=== PATIENT | male | born 1935 ===

== ENCOUNTER 2017-11-22 16:47 | Inpatient (IN) | payer MEDICARE, OTHER ==
[2017-11-22] MEDS ORDERED: Sodium Chloride 0.9% 500 ML IV STA (17:05)
--- NOTE | 2017-11-22 17:12 | ED PDOC ---
Arrival/HPI - General Chief Complaint: Syncope Time Seen by Provider: 11/22/17 16:48 Historian: Patient, Family (Ex-) - History of Present Illness Narrative History of Present Illness (Text): 11/22/17 17:05 82 year old male, whose past medical history includes metastatic prostate cancer , presents to the emergency department via EMS for evaluation status post syncopal episode. Patient is a poor historian and translated by his ex-, who states he could not answer the door for her, and she found him in the bathroom "fainting". Patient states he is progressively short of breath on exertion. Patient denies any other specific complaint. 11/23/17 07:22 Time/Duration: Prior to Arrival Symptom Course: Unchanged Past Medical History - Provider Review Nursing Documentation Reviewed: Yes - Infectious Disease Hx of Infectious Diseases: None - Tetanus Immunization Tetanus Immunization: Unknown - Cardiac Hx Cardiac Disorders: Yes Hx Hypertension: Yes - Pulmonary Hx Respiratory Disorders: No - Neurological Hx Neurological Disorder: No - HEENT Hx HEENT Disorder: No - Renal Hx Renal Disorder: Yes - Endocrine/Metabolic Hx Endocrine Disorders: Yes Hx Diabetes Mellitus Type 2: Yes - Hematological/Oncological Hx Blood Disorders: Yes Hx Anemia: Yes Hx Blood Transfusions: Yes Hx Cancer: Yes (Prostate) - Integumentary Hx Dermatological Disorder: No - Musculoskeletal/Rheumatological Hx Musculoskeletal Disorders: No Hx Falls: No - Gastrointestinal Hx Vomiting: Yes - Genitourinary/Gynecological Hx Genitourinary Disorders: Yes Hx Prostate Cancer: Yes Hx Prostate Problems: Yes Hx Urinary Tract Infection: Yes (2-9-15) Other/Comment: HAD BILATERAL NEPHROSTOMY WERE REMOVED - Psychiatric Hx Psychophysiologic Disorder: No Hx Substance Use: No - Surgical History Hx Cholecystectomy: Yes Other/Comment: HX NEPHROSTOMY - Anesthesia Hx Anesthesia: Yes Hx Anesthesia Reactions: No Hx Malignant Hyperthermia: No - Suicidal Assessment Feels Threatened In Home Enviroment: No Family/Social History - Physician Review Nursing Documentation Reviewed: Yes Family/Social History: No Known Family HX Smoking Status: Never Smoked Hx Alcohol Use: No Hx Substance Use: No Hx Substance Use Treatment: No Allergies/Home Meds Allergies/Adverse Reactions: Allergies No Known Allergies Allergy (Verified 11/22/17 16:52) Home Medications: Home Meds Medication Instructions Recorded Confirmed Metoprolol Succinate 25 mg PO DAILY 06/20/16 11/22/17 Mirabegron [Myrbetriq] 25 mg PO DAILY 11/07/17 11/22/17 Review of Systems - Physician Review All systems were reviewed & negative as marked: Yes - Review of Systems Constitutional: Normal Eyes: Normal ENT: Normal Respiratory: Normal Cardiovascular: Syncope Gastrointestinal: Vomiting Genitourinary Male: Normal Musculoskeletal: Normal Skin: Normal Neurological: Normal Endocrine: Normal Hemo/Lymphatic: Normal Psychiatric: Normal Physical Exam Vital Signs Reviewed: Yes Vital Signs Temp Pulse Resp BP Pulse Ox 11/22/17 22:00 97.8 F 95 H 20 114/79 100 11/22/17 21:55 98.3 F 98 H 20 120/76 100 11/22/17 20:46 136/74 11/22/17 17:59 91 H 18 115/67 99 11/22/17 16:54 98 H 18 98/58 L 98 11/22/17 16:47 97.4 F L Temperature: Afebrile Blood Pressure: Normal Pulse: Regular Respiratory Rate: Normal Appearance: Positive for: Well-Appearing, Non-Toxic, Comfortable Pain Distress: None Mental Status: Positive for: Alert and Oriented X 3 Finger Stick Blood Glucose: 171 - Systems Exam Head: Present: Atraumatic, Normocephalic Pupils: Present: PERRL Extroacular Muscles: Present: EOMI Conjunctiva: Present: Normal Mouth: Present: Moist Mucous Membranes Neck: Present: Normal Range of Motion Respiratory/Chest: Present: Clear to Auscultation, Good Air Exchange. No: Respiratory Distress, Accessory Muscle Use Cardiovascular: Present: Regular Rate and Rhythm, Normal S1, S2. No: Murmurs Abdomen: No: Tenderness, Distention, Peritoneal Signs Back: Present: Normal Inspection Upper Extremity: Present: Normal Inspection. No: Cyanosis, Edema Lower Extremity: Present: Normal Inspection. No: Edema Skin: Present: Warm, Dry, Normal Color. No: Rashes Psychiatric: Present: Normal Affect (chronically ill appearing and catechetic) Medical Decision Making ED Course and Treatment: 11/22/17 17:19 Impression: 82 year old male presents to the emergency department for evaluation status post syncopal episode/dyspnea - ro pe, intracranil, infectious metabolic etiology. pt with known mets Plan: -- Labs -- CT Head -- EKG -- Chest X-ray -- Urinalysis -- Reassess and disposition Prior Visits: Notes and results from previous visits were reviewed. Progress Notes: 11/22/17 17:54 Chest X-ray Reviewed by radiologist, shows: No acute findings 11/23/17 07:22 noted la and leukocytosis code sepsis called. ivf initated. v/q neg. h/h baseline, accepted by dr wilkerson. - Lab Interpretations Lab Results: 11/22/17 17:00 11/22/17 17:00 Lab Results 11/22/17 17:00: pO2 37, VBG pH 7.02 L*, VBG pCO2 32.0 L, VBG HCO3 8.3 L, VBG Total CO2 9.3 L, VBG O2 Sat (Calc) 59.1, VBG Base Excess -21.7 L, VBG Potassium 4.6, Sodium 142.0, Chloride 117.0 H, Glucose 168 H, Lactate 4.6 H*, FiO2 21.0, Venous Blood Potassium 4.6 11/22/17 17:00: Sodium 145, Chloride 119 H, Potassium 4.5, Carbon Dioxide 7 L D , Anion Gap 23 H, BUN 92 H, Creatinine 3.8 H, Est GFR ( Amer) 19, Est GFR (Non-Af Amer) 15, Random Glucose 154 H, Calcium 6.8 L*, Magnesium 1.6 L, Total Bilirubin 0.8, AST 56, ALT 67 H, Alkaline Phosphatase 86, Lactate Dehydrogenase 1152 H, Total Creatine Kinase 38, Troponin I 0.04, NT-Pro-B Natriuret Pep 1930 H, Total Protein 4.7 L, Albumin 2.6 L, Globulin 2.1, Albumin/ Globulin Ratio 1.2, Lipase 211 11/22/17 17:00: PT 13.7 H, INR 1.20, APTT 29.2, D-Dimer, Quantitative 4986 H 11/22/17 17:00: WBC 13.2 H D, RBC 2.71 L, Hgb 7.9 L, Hct 24.9 L, MCV 91.9, MCH 29.2, MCHC 31.7, RDW 21.6 H, Plt Count 163, MPV 9.9, Gran % 83.8 H, Lymph % ( Auto) 12.6 L, [place] % (Auto) 3.5, Eos % (Auto) 0.0 L, Baso % (Auto) 0.1, Gran # 11.04 H, Lymph # (Auto) 1.7, [place] # (Auto) 0.5, Eos # (Auto) 0.0, Baso # (Auto) 0.01 11/22/17 16:57: POC Glucose (mg/dL) 171 H - RAD Interpretation Radiology Orders: 11/22/17 17:04 HEAD W/O CONTRAST [CT] Stat CHEST PORTABLE [RAD] Stat 11/22/17 17:05 LUNG PERF & VENT SCAN [NM] Stat - Medication Orders Current Medication Orders: Calcium/Vitamin D (Oscal-D 250 Mg-125 Units Tab) 1 tab PO DAILY JOLYNN Furosemide (Lasix) 20 mg IVP Q12 JOLYNN Sodium Chloride (Sodium Chloride 0.9%) 1,000 mls @ 80 mls/hr IV .[id number] STA Stop: 11/23/17 11:04 Last Admin: 11/22/17 23:32 Dose: 80 mls/hr eMAR Start Stop Document 11/22/17 23:32 LOPEMAR (Rec: 11/22/17 23:33 [facility] [id number] [place] Intravenous Solution Start Date 11/22/17 Start Time 23:32 End Date 11/23/17 End time 11:30 Total Infusion Time 718 Ceftriaxone Sodium (Rocephin 1 Gram Ivpb) 1 gm in 100 mls @ 100 mls/hr IVPB DAILY JOLYNN PRN Reason: Protocol Metoprolol Succinate (Toprol Xl) 25 mg PO DAILY JOLYNN Morphine Sulfate (Morphine) 4 mg IVP Q6 PRN PRN Reason: Pain, moderate (4-7) Pantoprazole Sodium (Protonix Inj) 40 mg IVP DAILY JOLYNN Discontinued Medications Furosemide (Lasix) 20 mg IVP STAT STA Stop: 11/22/17 20:15 Last Admin: 11/22/17 20:46 Dose: 20 mg MAR Blood Pressure Document 11/22/17 20:46 (Rec: 11/22/17 20:46 [id number]) Blood Pressure Blood Pressure (100/60-150/90) 136/74 IVP Administration Document 11/22/17 20:46 (Rec: 11/22/17 20:46 [id number]) Charges for Administration # of IVP Administrations 1 Sodium Chloride (Sodium Chloride 0.9%) 500 mls @ 999 mls/hr IV .Q31M STA Stop: 11/22/17 17:35 Last Admin: 11/22/17 17:15 Dose: 999 mls/hr eMAR Start Stop Document 11/22/17 17:15 EWO (Rec: 11/22/17 17:15 EWO [id number]) Intravenous Solution Start Date 11/22/17 Start Time 17:15 End Date 11/22/17 End time 17:45 Total Infusion Time 30 Vancomycin HCl (Vancomycin 1gm) 1 gm in 250 mls @ 167 mls/hr IVPB STAT STA PRN Reason: Protocol Stop: 11/22/17 19:17 Last Admin: 11/22/17 18:37 Dose: 167 mls/hr eMAR Start Stop Document 11/22/17 18:37 EWO (Rec: 11/22/17 18:37 [facility] [id number]) Intravenous Solution Start Date 11/22/17 Start Time 18:37 End Date 11/22/17 End time 20:00 Total Infusion Time 83 Piperacillin Sod/Tazobactam Sod (Zosyn 3.375 In Ns 100ml) 100 mls @ 200 mls/hr IVPB STAT STA PRN Reason: Protocol Stop: 11/22/17 18:17 Last Admin: 11/22/17 18:04 Dose: 200 mls/hr eMAR Start Stop Document 11/22/17 18:04 EWO (Rec: 11/22/17 18:04 [facility] [id number]) Intravenous Solution Start Date 11/22/17 Start Time 18:04 End Date 11/22/17 End time 18:34 Total Infusion Time 30 Sodium Chloride (Sodium Chloride 0.9%) 1,000 mls @ 999 mls/hr IV .Q1H1M STA Stop: 11/22/17 18:50 Last Admin: 11/22/17 18:03 Dose: 999 mls/hr eMAR Start Stop Document 11/22/17 18:03 EWO (Rec: 11/22/17 18:04 [facility] [id number]) Intravenous Solution Start Date 11/22/17 Start Time 18:04 End Date 11/22/17 End time 19:04 Total Infusion Time 60 Morphine Sulfate (Morphine) 4 mg IVP STAT STA Stop: 11/22/17 18:41 Last Admin: 08/25/18 18:44 Dose: 4 mg MAR Pain Assessment Document 11/22/17 18:44 EWO (Rec: 11/22/17 18:44 [facility] [id number]) Pain Reassessment Is this a pain reassessment? No Sleep Is patient sleeping during reassessment? No Presence of Pain Presence of Pain Yes Pain Scale Used Pain Scale Used Numeric Location Pain Location Body Site Abdomen Description Description Constant Intensity of Pain at present 7 Pain Behavior Moaning Guarding IVP Administration Document 11/22/17 18:44 EWO (Rec: 11/22/17 18:44 [facility] [id number]) Charges for Administration # of IVP Administrations 1 Morphine Sulfate (Morphine) 4 mg IVP Q6 JOLYNN Last Admin: 11/23/17 00:36 Dose: Not Given Non-Admin Reason: Patient Refused MAR Pain Assessment Document 11/23/17 00:36 LOPEVAIVA (Rec: 11/23/17 00:36 [facility] [id number] [place] Pain Reassessment Is this a pain reassessment? Yes Sleep Is patient sleeping during reassessment? No Presence of Pain Presence of Pain No Pneumococcal Polyvalent Vaccine (Pneumovax 23 Vaccine) 0.5 ml IM .ONCE ONE Stop: 11/22/17 22:37 Disposition/Present on Arrival - Present on Arrival Any Indicators Present on Arrival: No History of DVT/PE: No History of Uncontrolled Diabetes: No Urinary Catheter: No History of Decub. Ulcer: No History Surgical Site Infection Following: None - Disposition Have Diagnosis and Disposition been Completed?: Yes Diagnosis: Syncope Disposition: HOSPITALIZED Disposition Time: 06:00 Condition: STABLE
[2017-11-22 17:45] LABS: BASO # 0.01 K/mm3 (0.0-2.0); BASO % 0.1 % (0.0-3.0); GRAN # 11.04 (1.4-6.5); GRAN % 83.8 % (50.0-68.0); HEMOGLOBIN 7.9 g/dL (14.0-18.0); LYMPH # 1.7 (1.2-3.4); LYMPH % 12.6 % (22.0-35.0); MEAN CELL VOLUME 91.9 fl (80.0-105.0); MEAN CORPUSCULAR HEMOGLOBIN 29.2 pg (25.0-35.0); MEAN CORPUSCULAR HGB CONC 31.7 g/dl (31.0-37.0); MEAN PLATELET VOLUME 9.9 fl (7.0-11.0); MONO # 0.5 (0.1-0.6); MONO % 3.5 % (1.0-6.0); RBC 2.71 10^6/uL (3.5-6.1); RED CELL DISTRIBUTION WIDTH 21.6 % (11.5-14.5); VENOUS BLOOD GAS BASE EXCESS -21.7 mmol/L (0.0-2.0); VENOUS BLOOD GAS PO2 37 mm/Hg (30-55); VENOUS BLOOD PH 7.02 (7.32-7.43); WHITE BLOOD COUNT 13.2 10^3/ul (4.5-11.0)
[2017-11-22] MEDS ORDERED: Piperacillin/Tazobact 3.375 gm 100 ML IVPB STA (17:48)
[2017-11-22] MEDS ORDERED: Vancomycin 1gm in NS 250ml 1 GM/250 ML BAG IVPB STA (17:48)
--- NOTE | 2017-11-22 17:48 | RAD ---
Date of service: 11/22/2017 HISTORY: syncope COMPARISON: 05/09/2014. FINDINGS: LUNGS: The lungs are clear. PLEURA: No significant pleural effusion identified, no pneumothorax apparent. CARDIOVASCULAR: There is persistent mild cardiomegaly. OSSEOUS STRUCTURES: No significant abnormalities. VISUALIZED UPPER ABDOMEN: Normal. OTHER FINDINGS: None. IMPRESSION: No acute findings.
[2017-11-22] MEDS ORDERED: Sodium Chloride 0.9% 1,000 ML IV STA ×2 (17:50→22:35)
[2017-11-22 17:54] LABS: TROPONIN I 0.04 ng/mL
[2017-11-22 18:05] LABS: INR 1.2; PARTIAL THROMBOPLASTIN TIME 29.2 Seconds (25.1-36.5); PROTHROMBIN TIME 13.7 SECONDS (9.4-12.5)
[2017-11-22] MEDS ORDERED: Morphine 4 mg/ml ISec IVP STA (18:40)
[2017-11-22 18:54] LABS: ALB/GLOB RATIO 1.2 (1.1-1.8); ALBUMIN 2.6 g/dL (3.0-4.8); CALCIUM 6.8 mg/dL (8.4-10.5)
[2017-11-22 21:42] LABS: ARTERIAL BLOOD GAS HCO3 7.7 mmol/L (21-28); ARTERIAL BLOOD GAS O2 SAT 99.9 % (95-98); ARTERIAL BLOOD GAS PCO2 18 mm/Hg (35-45); ARTERIAL BLOOD GAS PH 7.24 (7.35-7.45); ARTERIAL BLOOD GAS TCO2 8.3 mmol.L (22-28)
[2017-11-22] MEDS ORDERED: Pneumococcal 23-Valent Vaccine IM ONE (22:36)
[2017-11-22 22:37] LABS: URINE BILIRUBIN NEGATIVE (NEGATIVE); URINE BLOOD LARGE (NEGATIVE); URINE GLUCOSE (UA) NEGATIVE (NEGATIVE); URINE LEUKOCYTE ESTERASE MODERATE Leu/uL (NEGATIVE); URINE PROTEIN >=300 mg/dL (<30 mg/dL); URINE UROBILINOGEN 0.2 E.U./dL (<1 E.U./dL)
[2017-11-22 22:38] LABS: URINE APPEARANCE SLIGHT-CLOUDY (CLEAR); URINE COLOR ORANGE (YELLOW)
--- NOTE | 2017-11-22 22:39 | PCM.SEPTIC ---
<HeavenmitchDorinda - Last Filed: 11/22/17 22:36> Sepsis Progress Note - Reassessment Type Date of Evaluation: 11/22/17 Time of Evaluation: 22:37 Reassessment Type: Non-invasive reassessment - Non Invasive Reassessment Were the most recent vital sign reviewed: Yes Vital Sign (Latest): Temp Pulse Resp BP Pulse Ox 98.3 F 98 H 20 120/76 100 11/22/17 22:18 11/22/17 22:18 11/22/17 22:18 11/22/17 22:18 11/22/17 22:00 Cardiovascular: Yes: Regular Rate, Rhythm Respiratory: Yes: Normal Breath Sounds Capillary Refill: Normal (Less than 2 sec) Pulses: Normal Radial, Normal Dorsalis Pedis, Normal Posterior Tibialis Skin: Normal Color, Ecchymosis <Rolanda Abarca - Last Filed: 11/23/17 02:24> Sepsis Progress Note - Non Invasive Reassessment Vital Sign (Latest): Temp Pulse Resp BP Pulse Ox 98.1 F 94 H 19 127/77 100 11/22/17 23:40 11/22/17 23:51 11/22/17 23:40 11/22/17 23:40 11/22/17 23:40 Attending/Attestation - Attestation I have personally seen and examined this patient.: Yes I have fully participated in the care of the patient.: Yes I have reviewed all pertinent clinical information, including history, physical exam and plan: Yes Notes (Text): O/E of lungs: bibasilar crepts noted,R>L side. Also,there is a small superficial abrasion noted below the L knee.No ecchymosis seen.
[2017-11-22 23:05] LABS: URINE RBC TNTC /hpf (0-2); URINE WBC 20 - 25 /hpf (0-6)
[2017-11-22 23:06] LABS: URINE AMORPHOUS SEDIMENT SMALL; URINE BACTERIA OCC (NEG)
--- NOTE | 2017-11-22 23:09 | CP.PCM.HP ---
<Dorinda Handy - Last Filed: 11/23/17 02:03> History of Present Illness - History of Present Illness History of Present Illness: Dorinda Handy, Internal Medicine History and Physical for Dr. Abarca CC: Near Syncope 82 year old male with past medical history of metastatic prostate cancer stage IV, chronic kidney disease stage IV, anemia, hypertension, bilateral hydronephrosis, and depression presents with a near syncopal episode. Patient was a poor historian and most of the history was taken from the son and ex- . Patient's ex- reports finding patient in the bathroom almost fainting and short of breath. Patient also vomited dark fluid at the time soon after he drank grape juice. Patient also reported nausea and fullness, diffuse nonradiating, constant abdominal pain and distension. Patient reports that pain reduced after administration of morphine. Patient has had these abdominal symptoms before and was treated successfully with lasix in the past. Patient reports a 40 pound weight loss in a 3 month period. Patient has a decreased appetite and denies constipation. Patient reports daily bowel movements and last bowel movement was this afternoon. Patient is a poor historian but denied symptoms of headache, dizziness, fever, chest pain, heart palpitations, present shortness of breath, diarrhea, dysuria, hematuria, numbness/tingling. 12-point ROS was unreliable due to patient's mental status/drowsiness. PMH: as stated above PSH: bilateral ureteral stent, hemodialysis, prostatectomy Allergies: NKDA FMHx: Brother: CAD SHx: denies smoking, alcohol, or recreational drug use PMD: Dr. Toney. Patient also sees Dr. Almanza, Heme/onc, and Dr. Staton , Urology. Pharmacy: [facility] Insurance: [employer] Present on Admission - Present on Admission Any Indicators Present on Admission: No History of DVT/PE: No History of Uncontrolled Diabetes: No Review of Systems - Review of Systems Systems not reviewed;Unavailable: Acuity of Condition - Constitutional Constitutional: absent: Anorexia, Chills, Fever - EENT Eyes: absent: Blurred Vision Ears: absent: Decreased Hearing - Cardiovascular Cardiovascular: absent: Chest Pain, Chest Pain with Activity - Respiratory Respiratory: Dyspnea - Gastrointestinal Gastrointestinal: Abdominal Pain, Nausea, Vomiting. absent: Constipation, Diarrhea - Genitourinary Genitourinary: absent: Dysuria, Hematuria - Musculoskeletal Musculoskeletal: absent: Arthralgias - Neurological Neurological: Numbness, Tingling (on right 2nd finger) Past Patient History - Infectious Disease Hx of Infectious Diseases: None - Tetanus Immunizations Tetanus Immunization: Unknown - Past Medical History & Family History Past Medical History?: Yes - Past Social History Smoking Status: Never Smoked - CARDIAC Hx Cardiac Disorders: Yes Hx Hypertension: Yes Hx Peripheral Edema: Yes (ble +1 pitting) Other/Comment: et cold to touchfe - PULMONARY Hx Respiratory Disorders: No - NEUROLOGICAL Hx Neurological Disorder: No - HEENT Hx HEENT Problems: No - RENAL Hx Chronic Kidney Disease: Yes Hx Renal Failure: Yes Other/Comment: hydronephrosis, dysuria - ENDOCRINE/METABOLIC Hx Endocrine Disorders: No Hx Diabetes Mellitus Type 2: (family denies diabetes) - HEMATOLOGICAL/ONCOLOGICAL Hx Blood Disorders: Yes Hx Anemia: Yes (blood transfusion) Hx Cancer: Yes (Prostate) Hx Chemotherapy: Yes Hx Metastesis: Yes (peritoneum/pancreas) Other/Comment: pt dx with prostate about 15 yrs ago and was treated hormonal therapy, zytiga, chemo, completed - INTEGUMENTARY Hx Dermatological Problems: Yes Other/Comment: generalized dry skin, thick hard toenails, abd surgical scar - MUSCULOSKELETAL/RHEUMATOLOGICAL Hx Falls: Yes (fell w weeks ago bruised left shoulder) - GASTROINTESTINAL Hx Gastrointestinal Disorders: Yes (abd distended/firm) Hx Gall Bladder Disease: Yes (CHOLECYSTECTOMY) - GENITOURINARY/GYNECOLOGICAL Hx Genitourinary Disorders: Yes Hx Prostate Problems: Yes Hx Urinary Tract Infection: Yes (2-9-15) Other/Comment: pt has bilateral internal nephrostomy tubes that get changed 2x' s a year - PSYCHIATRIC Hx Substance Use: No - SURGICAL HISTORY Hx Surgeries: Yes Hx Cholecystectomy: Yes Other/Comment: pt has internal b/l nephrostomy tubes that are changed 2x's a year, pelvic bx - ANESTHESIA Hx Anesthesia: Yes Hx Anesthesia Reactions: No Hx Malignant Hyperthermia: No Meds Allergies/Adverse Reactions: Allergies Allergy/AdvReac Type Severity Reaction Status Date / Time No Known Allergies Allergy Verified 11/22/17 16:52 Physical Exam - Constitutional Additional comments: Drowsy, easily arousable - Head Exam Head Exam: ATRAUMATIC, NORMAL INSPECTION, NORMOCEPHALIC - Eye Exam Eye Exam: EOMI, PERRL - ENT Exam ENT Exam: Mucous Membranes Moist - Respiratory Exam Additional comments: mild bibasilar crepitations noted, right base of lung>left base of lung. - Cardiovascular Exam Cardiovascular Exam: REGULAR RHYTHM, RRR - GI/Abdominal Exam GI & Abdominal Exam: Distended, Firm, Hypoactive Bowel Sounds, Tenderness. absent: Guarding, Rebound - Extremities Exam Extremities exam: Positive for: full ROM. Negative for: pedal edema Additional comments: no cyanosis, left lower extremity abrasion - Back Exam Back exam: NORMAL INSPECTION - Neurological Exam Neurological exam: CN II-XII Intact, Oriented x3 Additional comments: drowsy but arousable - Skin Skin Exam: Dry, Normal Color, Warm Additional comments: mild abrasion on left lewer extremity abrasion Results - Vital Signs Recent Vital Signs: Last Vital Signs Temp 98.3 F 11/22/17 22:18 Pulse 98 H 11/22/17 22:18 Resp 20 11/22/17 22:18 BP 120/76 11/22/17 22:18 Pulse Ox 100 11/22/17 22:00 - Labs Result Diagrams: 11/22/17 17:00 11/22/17 17:00 Labs: Laboratory Results - last 24 hr 11/22/17 11/22/17 21:38 21:47 pCO2 18 L* pO2 139.0 H HCO3 7.7 L* ABG pH 7.24 L ABG Total CO2 8.3 L ABG O2 Saturation 99.9 H ABG Base Excess -17.4 L ABG Potassium 4.2 Sodium 143.0 Chloride 121.0 H Glucose 139 H Lactate 1.6 FiO2 28.0 Arterial Blood Potassium 4.2 Urine Color [place] Urine Appearance Slight-cloudy Urine pH 6.0 Ur Specific [place] 1.020 Urine Protein >=300 H Urine Glucose (UA) Negative Urine Ketones Trace H Urine Blood Large H Urine Nitrate Negative Urine Bilirubin Negative Urine Urobilinogen 0.2 Ur Leukocyte Esterase Moderate H Assessment & Plan - Assessment and Plan (Free Text) Assessment: 82 year old male with past medical history of metastatic prostate cancer stage IV, chronic kidney disease stage IV, anemia, hypertension, bilateral hydronephrosis, and depression presents with a near syncopal episode. Patient will be admitted for near syncope, shortness of breath, abdominal distension. Plan: Near Syncopal episode -Reported by ex- -Difficult to differentiate etiology due to poor historian -Head CT: No acute intracranial findings. -Blood pressure: 127/77 -Orthostatic vital signs ordered. -Vital signs Q4x24 hours -Patient was short of breath on admission. Patient's O2 saturation is 100% on 2L NC -Hgb: 7.9. Baseline is around 8 since 08/2017. Baseline was around 10 from from -07/2017. Patient has a chronic normocytic anemia -Continue to monitor. Metastatic prostate cancer stage IV -Patient with history of metastatic prostate cancer s/p prostatectomy and radiation -Abdominal CT ordered to evaluate for sites of metastasis. -Patient currently NPO due pending imaging studies. Diet will be progressed to clear liquid diet as tolerated after imaging studies. -LDH: 1152 -Patient currently with abdominal distension, likely 2/2 to metastatic prostate cancer. -One dose of lasix given in ED -Lasix 20 mg IVP Q12 started and will monitor for possible paracentesis to alleviate pressure. -I and O -Daily weight -Dr. Llamas, Heme/Onc, consulted for further recommendations. UTI -UA: protein>300, trace ketones, large blood, moderate leukocyte esterase, occasional bacteria, 20-25 WBC, Tntc RBC -Patient afebrile -WBC: 13.2. -Lactate on VBG: on admission, was 4.6. Last lactate was 1.6. -Patient fulfills SIRS criteria: WBC: 13.2, HR: 94, RR: 19, Temp: 98.1 -Patient is not in shock, blood pressure is 127/77. -Blood culture, urine culture, procalcitonin ordered. -Ceftriaxone 1 gm daily started for suspected UTI -Continue with NS 80 cc/hr -Continue to monitor. KDIGO stage 1 WALLY on stage 4 CKD -BUN/Cr: 92/3.8 -Due to dehydration vs. hydronephrosis from ureteral stenosis. -IV NS -Consider aguayo insertion. Bladder ultrasound from 11/14 showed no urinary retention. Anion Gap Metabolic Acidosis 2/2 to uremia vs. lactic acidosis vs. dehyration -Anion gap: 19 -Delta/delta: -CT Abdomen ordered. -Ammonia level ordered. Elevated D-Dimer likely 2/2 to metastatic prostate cancer -D-dimer: 4986 -V/Q scan: No findings to suggest pulmonary embolism Hypocalcemia -Calcium: 6.8 -Corrected calcium: 7.5 -Vitamin D level ordered -Will supplement calcium carbonate/vitamin D Hypomagnesemia -Mildly decreased at 1.6 -Continue to monitor. Elevated BNP possibly 2/2to WALLY on CKD -No history of congestive heart failure and no echocardiogram seen on [facility] [place] records. -Echocardiogram ordered. History of Hypertension -Blood pressure: 127/77 -Continue home metoprolol. DVT prophylaxis: SCD GI prophylaxis: protonix 40 mg daily CODE STATUS: Patient is DNR/DNI. Talked to patient's son and ex- extensively regarding patient's condition and patient's son agreed to make the patient DNR/DNI. Patient's son is the next of kin for the patient. Patient seen and assessed with Dr. Abarca. - Date & Time Date: 11/23/17 Time: 00:05 <Rolanda Abarca - Last Filed: 11/23/17 02:32> Results - Vital Signs Recent Vital Signs: Last Vital Signs Temp 98.1 F 11/22/17 23:40 Pulse 94 H 11/22/17 23:51 Resp 19 11/22/17 23:40 BP 127/77 11/22/17 23:40 Pulse Ox 100 11/22/17 23:40 - Labs Result Diagrams: 11/22/17 17:00 11/22/17 17:00 Labs: Laboratory Results - last 24 hr 11/22/17 11/22/17 21:38 21:47 pCO2 18 L* pO2 139.0 H HCO3 7.7 L* ABG pH 7.24 L ABG Total CO2 8.3 L ABG O2 Saturation 99.9 H ABG Base Excess -17.4 L ABG Potassium 4.2 Sodium 143.0 Chloride 121.0 H Glucose 139 H Lactate 1.6 FiO2 28.0 Arterial Blood Potassium 4.2 Urine Color [place] Urine Appearance Slight-cloudy Urine pH 6.0 Ur Specific [place] 1.020 Urine Protein >=300 H Urine Glucose (UA) Negative Urine Ketones Trace H Urine Blood Large H Urine Nitrate Negative Urine Bilirubin Negative Urine Urobilinogen 0.2 Ur Leukocyte Esterase Moderate H Urine RBC Tntc Urine WBC 20 - 25 Ur Epithelial Cells 3 - 4 Amorphous Sediment Small Urine Bacteria Occ Attending/Attestation - Attestation I have personally seen and examined this patient.: Yes I have fully participated in the care of the patient.: Yes I have reviewed all pertinent clinical information: Yes Notes (Text): 11/23/17 02:29 Pt examined with the Resident by the bedside. Physical findings,lab results and plan of treatment discussed in detail. Agree with documentation and plan of treatment.
[2017-11-23] MEDS ORDERED: Morphine 4 mg/ml ISec IVP SCH
[2017-11-23] MEDS ORDERED: Morphine 4 mg/ml ISec IVP PRN (01:16)
[2017-11-23] MEDS ORDERED: Dextrose 50% SYRINGE Inj (50 ml) ONE (05:04)
[2017-11-23 06:20] LABS: BASO # 0.01 K/mm3 (0.0-2.0); BASO % 0.1 % (0.0-3.0); EOS % 0.1 % (1.5-5.0); GRAN # 9.73 (1.4-6.5); GRAN % 87.2 % (50.0-68.0); LYMPH # 1.1 (1.2-3.4); LYMPH % 9.6 % (22.0-35.0); MEAN CELL VOLUME 88.7 fl (80.0-105.0); MEAN CORPUSCULAR HGB CONC 32.7 g/dl (31.0-37.0); MEAN PLATELET VOLUME 9.4 fl (7.0-11.0); MONO # 0.3 (0.1-0.6); RBC 2.38 10^6/uL (3.5-6.1); RED CELL DISTRIBUTION WIDTH 21.5 % (11.5-14.5); WHITE BLOOD COUNT 11.2 10^3/ul (4.5-11.0)
[2017-11-23 06:34] LABS: HEMOGLOBIN 6.9 g/dL (14.0-18.0)
[2017-11-23 06:50] LABS: ALB/GLOB RATIO 1.1 (1.1-1.8); ALBUMIN 2.4 g/dL (3.0-4.8); CALCIUM 6.4 mg/dL (8.4-10.5)
--- NOTE | 2017-11-23 08:16 | CT ---
Date of service: 11/22/2017 PROCEDURE: CT HEAD WITHOUT CONTRAST. HISTORY: Syncope COMPARISON: None available. TECHNIQUE: Axial computed tomography images were obtained through the head/brain without intravenous contrast. Radiation dose: Total exam DLP = 760.00 mGy-cm. This CT exam was performed using one or more of the following dose reduction techniques: Automated exposure control, adjustment of the mA and/or kV according to patient size, and/or use of iterative reconstruction technique. FINDINGS: HEMORRHAGE: No intracranial hemorrhage. BRAIN: There are mild chronic microangiopathic changes. There is no mass, mass effect or abnormal extra-axial fluid collection. There is no territorial infarction. The midline sagittal structures are normal. VENTRICLES: There is moderate age-related global parenchymal volume loss and proportionate enlargement of the ventricles and cortical sulci. CALVARIUM: There is no calvarial fracture or extracranial soft tissue swelling. PARANASAL SINUSES: Predominantly clear. MASTOID AIR CELLS: Predominantly clear. OTHER FINDINGS: None. IMPRESSION: No acute intracranial abnormality. Mild chronic microangiopathic changes and moderate age-related global parenchymal volume loss. A preliminary report was provided by [facility].
[2017-11-23] MEDS ORDERED: Magnesium 2 gm/50 ml NS 2 GM/50 ML BAG IVPB ONE ×2 (08:34→10:04)
[2017-11-23] MEDS ORDERED: Sodium Chloride 0.9% 1,000 ML IV STA (08:43)
[2017-11-23] MEDS: Metoprolol Succinate 25 mg XL Tab PO SCH (09:05)
[2017-11-23] MEDS ORDERED: Calcium-Vit D 250 mg-125 Units Tab UD PO SCH (10:00)
[2017-11-23] MEDS ORDERED: MIRABEGRON 25 MG PO SCH (10:00)
[2017-11-23] MEDS ORDERED: cefTRIAXone 1 gm 1 GM/100 ML BAG IVPB SCH (10:00)
--- NOTE | 2017-11-23 10:17 | CT ---
Date of service: 11/22/2017 PROCEDURE: CT Abdomen and Pelvis without intravenous contrast HISTORY: abdominal distension COMPARISON: 08/26/2017. TECHNIQUE: CT scan of the abdomen and pelvis was performed without administration of intravenous contrast. Oral contrast was not administered. Coronal and sagittal reformatted images were obtained. . Radiation dose: Total exam DLP = 758.06 mGy-cm. This CT exam was performed using one or more of the following dose reduction techniques: Automated exposure control, adjustment of the mA and/or kV according to patient size, and/or use of iterative reconstruction technique. FINDINGS: LOWER THORAX: The visualized lungs are clear. LIVER: Normal in size. No intrahepatic ductal dilatation. GALLBLADDER AND BILE DUCTS: No calcified gallstones. No biliary dilatation PANCREAS: Normal in size. No ductal dilatation. SPLEEN: Normal in size. ADRENALS: Normal in size. No discrete nodule. KIDNEYS AND URETERS: Bilateral atrophic kidneys. Ureteral stents remain in place. Bilateral hydroureteronephrosis. VASCULATURE: No aortic aneurysm. BOWEL: The stomach is distended and contains ingested debris. The small bowel loops are normal in caliber. The colon is normal in size. No bowel dilatation or wall thickening. No bowel obstruction. APPENDIX: Normal appendix. PERITONEUM: Small abdominal ascites. No free air. There are large mesenteric masses, the largest in the left abdomen. LYMPH NODES: No enlarged lymph nodes. BLADDER: Well distended and grossly normal in appearance. REPRODUCTIVE: The uterus is normal in size BONES: No acute fracture. There are multiple osseous metastasis. OTHER FINDINGS: None. IMPRESSION: Redemonstration of extensive peritoneal metastases with a large mass in the left mid abdomen. Distended stomach with ingested debris. Multiple sclerotic osseous metastasis. A preliminary report was provided by [facility].
[2017-11-23] MEDS: Cefepime 1gm in NS 100ml 1 GM/100 ML BAG IVPB SCH (11:52)
--- NOTE | 2017-11-23 12:55 | CARD ---
APPROVED REPORT Date of service: 11/22/2017 EKG Measurement Heart [id number] IN [id number] [id number] <Conclusion> Sinus rhythm with fusion complexes Otherwise normal ECG
--- NOTE | 2017-11-23 13:40 | CP.PCM.PN ---
<Tony Zarate - Last Filed: 11/23/17 16:03> Subjective - Date & Time of Evaluation Date of Evaluation: 11/23/17 Time of Evaluation: 13:38 - Subjective Subjective: Tony Zarate PGY1 Progress Note for Dr. Morocho Mr. Puentes was examined at bedside this morning. He was drowsy, but arousable and able to answer questions. He denied any dizziness, headache, shortness of breath, abdominal pain, nausea, vomiting, dysuria, difficulty urinating. His was present and reported that he was recently evaluated by his oncologist and told that he has a mass? obstruction? on R kidney. She was amenable to speaking with palliative care and considering hospice. Objective - Vital Signs/Intake and Output Vital Signs (last 24 hours): Temp Pulse Resp BP Pulse Ox 98.3 F 110 H 18 131/77 100 11/23/17 13:31 11/23/17 13:31 11/23/17 13:31 11/23/17 13:31 11/22/17 23:40 Intake and Output: 11/23/17 11/23/17 06:59 18:59 Intake Total 560 0 Output Total 500 Balance 60 0 - Medications Medications: Current Medications Calcium/Vitamin D (Oscal-D 250 Mg-125 Units Tab) 1 tab PO DAILY [facility] Last Admin: 11/23/17 09:05 Dose: Not Given Sodium Chloride (Sodium Chloride 0.9%) 1,000 mls @ 50 mls/hr IV .Q20H STA Stop: 11/23/17 18:34 Last Admin: 11/23/17 09:05 Dose: 50 mls/hr Sodium Bicarbonate 100 meq/ (Dextrose) 1,100 mls @ 100 mls/hr IV .Q11H [facility] Cefepime HCl (Maxipime 1gm) 1 gm in 100 mls @ 100 mls/hr IVPB Q24H [facility] PRN Reason: Protocol Stop: 12/02/17 11:01 Last Admin: 11/23/17 11:52 Dose: 100 mls/hr Metoprolol Succinate (Toprol Xl) 25 mg PO DAILY [facility] Last Admin: 11/23/17 09:05 Dose: Not Given Morphine Sulfate (Morphine) 4 mg IVP Q6 PRN PRN Reason: Pain, moderate (4-7) Pantoprazole Sodium (Protonix Inj) 40 mg IVP DAILY [facility] Last Admin: 11/23/17 09:24 Dose: 40 mg - Labs Labs: 11/23/17 05:30 11/23/17 05:30 PT 13.7 SECONDS (9.4-12.5) H 11/22/17 17:00 INR 1.20 11/22/17 17:00 APTT 29.2 Seconds (25.1-36.5) 11/22/17 17:00 - Head Exam Head Exam: ATRAUMATIC, NORMOCEPHALIC - Respiratory Exam Respiratory Exam: Clear to Ausculation Bilateral, NORMAL BREATHING PATTERN. absent: Rhonchi, Wheezes - Cardiovascular Exam Cardiovascular Exam: REGULAR RHYTHM, +S1, +S2. absent: Gallop, Rubs, Murmur - GI/Abdominal Exam GI & Abdominal Exam: Soft, Normal Bowel Sounds. absent: Tenderness Additional comments: no suprapubic tenderness - Extremities Exam Extremities Exam: Pedal Edema - Neurological Exam Neurological Exam: Awake - Skin Skin Exam: Normal Color Assessment and Plan - Assessment and Plan (Free Text) Assessment: 82 year old male with past medical history of metastatic prostate cancer stage IV, chronic kidney disease stage IV, anemia, hypertension, bilateral hydronephrosis, and depression presents with a near syncopal episode. Patient will be admitted for near syncope, shortness of breath, abdominal distension. Plan: Near Syncopal episode - pt unable to provide full history, episode reported by - denies dizziness, shortness of breath today - Head CT: No acute intracranial findings - BP: 144/78 - PT/OT eval ordered - Continue to monitor Metastatic prostate cancer: stage IV - h/o metastatic prostate cancer s/p prostatectomy and radiation - CT abdomen: metastasis to peritoneum and bone - ordered PSA, bladder scan as per urology - LDH: 1152 - I/Os: 560/500 - Daily weights: 177 lb 6.4 oz from 175 - Hem/onc consulted, Dr. Llamas, f/u recs - Urology consulted, Dr. Narcisa Mckeon, f/u recs - Palliative care consulted, f/u recs - consider hospice Chronic normocytic anemia - H/H 6.9/21.1 - Consented for transfusion - 1 unit PRBC given - f/u H/H - f/u Fe sat, ferritin, vit B12, folate Abdominal Distention - pt reported abdominal distention - given lasix in ED - d/c lasix 20mg q12 - monitor UTI - UA: mod leukocyte esterase, 20-25 WBC, large blood - Patient continues to be afebrile - WBC 11.2 from 13.2. - Lactate 1.6 - f/u BCx, UCx - f/u procal - continue cefepime - continue to monitor WALLY on CKD stage IV - BUN/Cr: 109/3.9 - pt denies urinary retention - BNP: 1930 - ECHO: f/u - CT abdomen: b/l atrophic kidneys, ureteral stents in place, b/l hydrouretonephrosis - bicarb drip ordered, as per nephro - weekly vit D supplements, as per nephro - decrease IV NS to 50cc/hr - f/u urine spot protein, cr, albumin/cr ratio - f/u 25-OH Vit D, iPTH, Phosph, HIV, Hep B/C - consider aguayo insertion pending bladder scan - Nephro consulted, Dr. Marquez, recs appreciated Elevated D-Dimer - likely secondary to metastatic prostate cancer - D-dimer: 4986 - V/Q scan: Non suggestive of pulmonary embolism Hypocalcemia - Calcium: 6.4, corrected 7.7 - Vitamin D 12.8 - Ca gluconate given - monitory Hypomagnesemia - Mg 1.4 - repleted with Mg 2 gm - monitor H/o HTN - BP: 144/78 - Continue home metoprolol - monitor GI prophylaxis: protonix 40 DVT prophylaxis: SCD Patient seen and assessed with Dr. Morocho. <Samara Morocho R - Last Filed: 11/24/17 08:56> Objective - Vital Signs/Intake and Output Vital Signs (last 24 hours): Temp Pulse Resp BP Pulse Ox 99 F 107 H 18 145/78 98 11/24/17 06:00 11/24/17 06:00 11/24/17 06:00 11/24/17 06:00 11/24/17 06:00 Intake and Output: 11/24/17 11/24/17 06:59 18:59 Intake Total 1200 0 Output Total 100 700 Balance 1100 -700 - Medications Medications: Current Medications Ergocalciferol (Drisdol 50,000 Intl Units Cap) 1 cap PO Q7D [facility] Last Admin: 11/23/17 14:52 Dose: 1 cap Sodium Bicarbonate 100 meq/ (Dextrose) 1,100 mls @ 100 mls/hr IV .Q11H [facility] Last Admin: 11/23/17 21:28 Dose: 100 mls/hr Cefepime HCl (Maxipime 1gm) 1 gm in 100 mls @ 100 mls/hr IVPB Q24H [facility] PRN Reason: Protocol Stop: 12/02/17 11:01 Last Admin: 11/23/17 11:52 Dose: 100 mls/hr Metoprolol Succinate (Toprol Xl) 25 mg PO DAILY [facility] Last Admin: 11/23/17 09:05 Dose: Not Given Morphine Sulfate (Morphine) 4 mg IVP Q6 PRN PRN Reason: Pain, moderate (4-7) Pantoprazole Sodium (Protonix Ec Tab) 40 mg PO 0600 [facility] Last Admin: 11/24/17 05:03 Dose: 40 mg Sodium Bicarbonate (Sodium Bicarbonate Tab) 1,300 mg PO TID [facility] Last Admin: 11/23/17 18:15 Dose: 1,300 mg - Labs Labs: 11/24/17 06:30 11/24/17 06:30 PT 13.7 SECONDS (9.4-12.5) H 11/22/17 17:00 INR 1.20 11/22/17 17:00 APTT 29.2 Seconds (25.1-36.5) 11/22/17 17:00 Attending/Attestation - Attestation I have personally seen and examined this patient.: Yes I have fully participated in the care of the patient.: Yes I have reviewed all pertinent clinical information, including history, physical exam and plan: Yes Notes (Text): Patient seen and examined by me at 9:20AM with resident 11/23/17. Case including HPI, physical exam, and assessment and plan discussed with resident. Agree with above with following additions/corrections. Patient is an 82-year-old male with past medical history significant for metastatic prostate cancer stage IV, chronic kidney disease stage IV, anemia, hypertension, bilateral hydronephrosis, and depression that presented to the emergency room with near syncope. Patient states he is feeling better today. Shortness of breath has improved. Patient does not feel dizzy or lightheaded. Denies any headaches. Abdominal distention improved. No difficulty urinating. No dysuria. No nausea, vomiting, or abdominal pain. No fevers or chills. No chest pain or palpitations. Physical exam: Gen: Awake and alert lying in bed in no acute distress. HEENT: Normocephalic, atraumatic. Extraocular muscles intact, pupils equal reactive. No scleral icterus. Oropharynx is pink and moist. Neck is supple. Cardiovascular: Regular rhythm. Normal S1 and S2. No murmurs, rubs, or gallops appreciated Pulmonary: Normal respiratory effort. Decreased breath sounds. No rhonchi, rales , or wheezing appreciated Gastrointestinal: Soft, nontender, distended. Positive bowel sounds all 4 quadrants, no guarding. Musculoskeletal: Moves all extremites. No calf tenderness. Central nervous system: AAO 3 Dermatologic: Skin warm and dry Assessment and plan: Patient is an 82-year-old male with past medical history significant for metastatic prostate cancer stage IV, chronic kidney disease stage IV, anemia, hypertension, bilateral hydronephrosis, and depression that presented to the emergency room with near syncope. 1. Sepsis secondary to possible UTI. Continue cefepime. ID consulted, follow-up recommendations. Continue IV fluids. Pro-calcitonin elevated at 1.28. Lactate normalized. Case was discussed in detail with patient regarding current diagnosis and treatment plan. CT abdomen and pelvis per radiologist shows redemonstration of extensive peritoneal metastases with a large mass in the left mid abdomen, distended stomach with ingested debris, multiple sclerotic osseous metastases, bilateral atrophic kidneys, ureteral stents remain in place, bilateral hydroureteronephrosis. Positive leukocytosis. Patient is afebrile. 2. Near syncopal episode. May be secondary to sepsis and anemia. Head CT per radiologist shows no acute intracranial abnormality, mild chronic microangiopathic changes and moderate age-related global parenchymal volume loss.' 3. Metastatic Prostate Cancer. Metastases to peritoneum and bone. Oncology consulted, follow-up recommendations. Palliative care consult, follow-up recommendations. Family is considering hospice care 4. Anemia. Likely secondary to malignancy. Patient being transfused 1 unit packed red blood cells. Hematology/oncology consulted, follow-up recommendations. Stool for occult blood pending. Monitor H&H 5. Abdominal distention. Improved per patient. Likely secondary to large mass in the mid left abdomen seen on CT. Continue to monitor 6. WALLY on CKD. Metabolic acidosis. Likely due to obstructive uropathy. CT abdomen and pelvis shows bilateral hydroureteronephrosis. Started on Bicarb drip. Nephrology consulted, recommendations appreciated. Urology consulted, follow up recommendations. Continue IV fluids. 7. Elevated D-dimer. Likely secondary to malignancy. V/Q scan official results pending. 8. Hypocalcemia/Vitamin D deficiency. Given calcium gluconate and started on Vitamin D. 9. Hypomagnesemia. Will give magnesium sulfate. Follow up repeat labs in the a.m. 10. Hypertension. Continue home metoprolol 11. GI/DVT prophylaxis. Protonix and heparin 12. Advanced directive. Patient is DNR/DNI. Palliative care consulted for possible hospice care. Case discussed in detail with the patient and patient's family at bedside regarding current diagnosis and treatment plan.
[2017-11-23] MEDS: Sodium Bicarbonate 8.4% 100 MEQ in Dextrose 5% In Water 1,000 ML IV SCH ×2 (13:53→21:28)
[2017-11-23] MEDS ORDERED: Ergocalciferol 50,000 Intl Units Cap PO SCH (14:00)
--- NOTE | 2017-11-23 14:06 | CP.PCM.CON ---
History of Present Illness - History of Present Illness History of Present Illness: Nephrology Consultation Note: Assessment: critical Acute Kidney Injury (N17.9) likely due to obstructive uropathy, sepsis, ATN Hypertensive Chronic Kidney Disease (I12.9) Chronic Kidney Disease (N18.4) Stage 4 with ? mg proteinuria (R80.9) likely due to obs uropathy, AKIs in past Anemia, sepsis with lactic acidosis HAGMA with respi compensation vit D def metastatic prostate CA hypocalcemia, hypomagnesemia, hypernatremia, hyperphosphatemia Plan No acute need for renal replacement therapy at this time. but may need soon, will need close follow up. palliative care consult to ascertain goals of care Maintain hemodynamics stable. Avoid hypotension. Patient not on ACEI/ARB due to recent WALLY Monitor Input/Output, daily weights and renal function with basic metabolic panel supplement Ca and Mag bicarb drip as ordered started PO bicarb and weekly Vit D supplements PRBC transfusion, heme eval. will defer decision for JOVANY to heme/onc aguayo catheterization Check urine spot protein/creatinine, albumin/creatinine ratio Anemia work up with TSAT/Ferritin/Vitamin B12/folate Check for 25-OH vitamin D, iPTH, phosphorus level. HIV/Hep B and C serologies Dose meds/antibiotics for reduced GFR. Avoid fleets enema/magnesium based laxatives. Avoid nephrotoxins/NSAIDs/ iodinated contrast (unless needed emergently) Glycemic control Further work up/management as per primary team Thanks for allowing me to participate in care of your patient. Will follow patient with you. Please call if any Qs. had d/w team Dr Reid Marquez Office: [phone] Chief Complaint; weakness Reason for consult: Acute Kidney Injury HPI: Pt is a 82 M with hx of HTN, metastatic prostate CA, CKD stage 4 wtih baseline cr 1.5-2.0, had required HD in past presented with complaints of fatigue, weakness and near syncope episodes, found to have WALLY and anemia hence renal consulted Denies OTC/herbal meds or NSAIDs No recent iodinated contrast exposure. Noted obvious episodes of low BP 98/58. ROS: Cardiovascular: No chest pain. Pulmonary: c/o mild shortness of breath Gastrointestinal: denies abdominal pain No nausea. No vomiting. Genitourinary: No pain while urinating. Denies blood in urine. All other negative except as mentioned in HPI. overall limited due to his current illness Physical Examination: General Appearance: Comfortable, in no acute respiratory distress, co-operative . ill appearing. Vitals reviewed and noted as below Head; Atraumatic, normocephalic ENT: no ulcers no thrush. Tongue is midline. Oropharynx: no rash or ulcers. EYES: Pupils are equal, round and reactive to light accommodation. Eye muscles and extraocular movement intact. Sclera is anicteric. Neck; supple no lymphadenopathy, no thyromegaly or bruit Lungs: Normal respiratory rate/effort. Breath sounds bilateral equal and clear Heart: Normal rate. s1s2 normal. No rub or gallop. Extremities: no edema. No varicose veins Neurological: Patient is alert, awake and oriented to person, place and time. No focal deficit. Strength bilateral appropriate and equal Skin: Warm and dry. Normal turgor. No rash. Palpitation: Normal elasticity for age Abdomen: Abdomen is soft. Bowel sounds +. There is no abdominal tenderness, no guarding/rigidity no organomegaly Psych: normal insight and normal affect/mood MSK: no joint tenderness or swelling. Digits and nails normal, no deformity : kidney or bladder not palpable Labs/imaging reviewed. Past medical history, past surgical history, family history, social history, allergy reviewed and noted as below Family hx: no hx of CKD. Rest non-contributory work up: b/l hydroureteronephrosis lactic acid 4.6 UA >3+ protein with large blood Past Patient History - Infectious Disease Hx of Infectious Diseases: None - Tetanus Immunizations Tetanus Immunization: Unknown - Past Medical History & Family History Past Medical History?: Yes - Past Social History Smoking Status: Never Smoked - CARDIAC Hx Cardiac Disorders: Yes Hx Hypertension: Yes - PULMONARY Hx Respiratory Disorders: No - NEUROLOGICAL Hx Neurological Disorder: No - HEENT Hx HEENT Problems: No - RENAL Hx Chronic Kidney Disease: Yes - ENDOCRINE/METABOLIC Hx Endocrine Disorders: Yes Hx Diabetes Mellitus Type 2: Yes - HEMATOLOGICAL/ONCOLOGICAL Hx Blood Disorders: Yes Hx Anemia: Yes Hx Blood Transfusions: Yes Hx Cancer: Yes (Prostate) - INTEGUMENTARY Hx Dermatological Problems: No - MUSCULOSKELETAL/RHEUMATOLOGICAL Hx Musculoskeletal Disorders: No Hx Falls: No - GASTROINTESTINAL Hx Vomiting: Yes - GENITOURINARY/GYNECOLOGICAL Hx Genitourinary Disorders: Yes Hx Prostate Cancer: Yes Hx Prostate Problems: Yes Hx Urinary Tract Infection: Yes (2-9-15) Other/Comment: HAD BILATERAL NEPHROSTOMY WERE REMOVED - PSYCHIATRIC Hx Psychophysiologic Disorder: No Hx Substance Use: No - SURGICAL HISTORY Hx Cholecystectomy: Yes Other/Comment: HX NEPHROSTOMY - ANESTHESIA Hx Anesthesia: Yes Hx Anesthesia Reactions: No Hx Malignant Hyperthermia: No Meds Allergies/Adverse Reactions: Allergies Allergy/AdvReac Type Severity Reaction Status Date / Time No Known Allergies Allergy Verified 11/22/17 16:52 - Medications Medications: Current Medications Calcium/Vitamin D (Oscal-D 250 Mg-125 Units Tab) 1 tab PO DAILY [facility] Last Admin: 11/23/17 09:05 Dose: Not Given Ergocalciferol (Drisdol 50,000 Intl Units Cap) 1 cap PO Q7D [facility] Sodium Chloride (Sodium Chloride 0.9%) 1,000 mls @ 50 mls/hr IV .Q20H STA Stop: 11/23/17 18:34 Last Admin: 11/23/17 09:05 Dose: 50 mls/hr Sodium Bicarbonate 100 meq/ (Dextrose) 1,100 mls @ 100 mls/hr IV .Q11H [facility] Last Admin: 11/23/17 13:53 Dose: 100 mls/hr Cefepime HCl (Maxipime 1gm) 1 gm in 100 mls @ 100 mls/hr IVPB Q24H [facility] PRN Reason: Protocol Stop: 12/02/17 11:01 Last Admin: 11/23/17 11:52 Dose: 100 mls/hr Metoprolol Succinate (Toprol Xl) 25 mg PO DAILY [facility] Last Admin: 11/23/17 09:05 Dose: Not Given Morphine Sulfate (Morphine) 4 mg IVP Q6 PRN PRN Reason: Pain, moderate (4-7) Pantoprazole Sodium (Protonix Inj) 40 mg IVP DAILY [facility] Last Admin: 11/23/17 09:24 Dose: 40 mg Sodium Bicarbonate (Sodium Bicarbonate Tab) 1,300 mg PO TID [facility] Results - Vital Signs Recent Vital Signs: Last Vital Signs Temp 98.2 F 11/23/17 13:47 Pulse 107 H 11/23/17 13:47 Resp 18 11/23/17 13:47 BP 144/78 11/23/17 13:47 Pulse Ox 100 11/22/17 23:40 - Labs Result Diagrams: 11/23/17 05:30 11/23/17 05:30 Labs: Laboratory Results - last 24 hr 11/22/17 11/22/17 11/23/17 21:38 21:47 05:30 WBC 11.2 H RBC 2.38 L Hgb 6.9 L* Hct 21.1 L MCV 88.7 D MCH 29.0 MCHC 32.7 RDW 21.5 H Plt Count 138 MPV 9.4 Gran % 87.2 H Lymph % (Auto) 9.6 L Esmeralda % (Auto) 3.0 Eos % (Auto) 0.1 L Baso % (Auto) 0.1 Gran # 9.73 H Lymph # (Auto) 1.1 L Esmeralda # (Auto) 0.3 Eos # (Auto) 0.0 Baso # (Auto) 0.01 pCO2 18 L* pO2 139.0 H HCO3 7.7 L* ABG pH 7.24 L ABG Total CO2 8.3 L ABG O2 Saturation 99.9 H ABG Base Excess -17.4 L ABG Potassium 4.2 Sodium 143.0 Chloride 121.0 H Glucose 139 H Lactate 1.6 FiO2 28.0 Potassium Carbon Dioxide Anion Gap BUN Creatinine Est GFR ( Amer) Est GFR (Non-Af Amer) Random Glucose Calcium Phosphorus Magnesium Total Bilirubin AST ALT Alkaline Phosphatase Ammonia Total Protein Albumin Globulin Albumin/Globulin Ratio 25-OH Vitamin D Total Arterial Blood Potassium 4.2 Urine Color Dale Urine Appearance Slight-cloudy Urine pH 6.0 Ur Specific Murray 1.020 Urine Protein >=300 H Urine Glucose (UA) Negative Urine Ketones Trace H Urine Blood Large H Urine Nitrate Negative Urine Bilirubin Negative Urine Urobilinogen 0.2 Ur Leukocyte Esterase Moderate H Urine RBC Tntc Urine WBC 20 - 25 Ur Epithelial Cells 3 - 4 Amorphous Sediment Small Urine Bacteria Occ Blood Type Antibody Screen Crossmatch [facility] History Checked 11/23/17 11/23/17 11/23/17 05:30 05:30 06:00 WBC RBC Hgb Hct MCV MCH MCHC RDW Plt Count MPV Gran % Lymph % (Auto) Esmeralda % (Auto) Eos % (Auto) Baso % (Auto) Gran # Lymph # (Auto) Esmeralda # (Auto) Eos # (Auto) Baso # (Auto) pCO2 pO2 HCO3 ABG pH ABG Total CO2 ABG O2 Saturation ABG Base Excess ABG Potassium Sodium 147 Chloride 120 H Glucose Lactate FiO2 Potassium 4.7 Carbon Dioxide 12 L Anion Gap 20 BUN 109 H Creatinine 3.9 H Est GFR ( Amer) 18 Est GFR (Non-Af Amer) 15 Random Glucose 114 H Calcium 6.4 L* Phosphorus 5.5 H Magnesium 1.4 L Total Bilirubin 0.6 AST 40 ALT 71 H Alkaline Phosphatase 74 Ammonia 32 Total Protein 4.5 L Albumin 2.4 L Globulin 2.1 Albumin/Globulin Ratio 1.1 25-OH Vitamin D Total < 12.8 L Arterial Blood Potassium Urine Color Urine Appearance Urine pH Ur Specific Murray Urine Protein Urine Glucose (UA) Urine Ketones Urine Blood Urine Nitrate Urine Bilirubin Urine Urobilinogen Ur Leukocyte Esterase Urine RBC Urine WBC Ur Epithelial Cells Amorphous Sediment Urine Bacteria Blood Type Antibody Screen Crossmatch BBK History Checked 11/23/17 08:00 WBC RBC Hgb Hct MCV MCH MCHC RDW Plt Count MPV Gran % Lymph % (Auto) Esmeralda % (Auto) Eos % (Auto) Baso % (Auto) Gran # Lymph # (Auto) Esmeralda # (Auto) Eos # (Auto) Baso # (Auto) pCO2 pO2 HCO3 ABG pH ABG Total CO2 ABG O2 Saturation ABG Base Excess ABG Potassium Sodium Chloride Glucose Lactate FiO2 Potassium Carbon Dioxide Anion Gap BUN Creatinine Est GFR ( Amer) Est GFR (Non-Af Amer) Random Glucose Calcium Phosphorus Magnesium Total Bilirubin AST ALT Alkaline Phosphatase Ammonia Total Protein Albumin Globulin Albumin/Globulin Ratio 25-OH Vitamin D Total Arterial Blood Potassium Urine Color Urine Appearance Urine pH Ur Specific Murray Urine Protein Urine Glucose (UA) Urine Ketones Urine Blood Urine Nitrate Urine Bilirubin Urine Urobilinogen Ur Leukocyte Esterase Urine RBC Urine WBC Ur Epithelial Cells Amorphous Sediment Urine Bacteria Blood Type O POSITIVE Antibody Screen Negative Crossmatch See Detail BBK History Checked Patient has bt
[2017-11-23 14:31] LABS: BASO # 0.02 K/mm3 (0.0-2.0); BASO % 0.2 % (0.0-3.0); GRAN # 10.9 (1.4-6.5); GRAN % 88.5 % (50.0-68.0); HEMOGLOBIN 7.1 g/dL (14.0-18.0); LYMPH % 8.3 % (22.0-35.0); MEAN CELL VOLUME 89.2 fl (80.0-105.0); MEAN CORPUSCULAR HEMOGLOBIN 29.6 pg (25.0-35.0); MEAN CORPUSCULAR HGB CONC 33.2 g/dl (31.0-37.0); MEAN PLATELET VOLUME 9.3 fl (7.0-11.0); MONO # 0.4 (0.1-0.6); RBC 2.4 10^6/uL (3.5-6.1); RED CELL DISTRIBUTION WIDTH 21.1 % (11.5-14.5); WHITE BLOOD COUNT 12.3 10^3/ul (4.5-11.0)
[2017-11-23 14:41] LABS: IRON 49 ug/dL (45-180)
[2017-11-23 14:50] LABS: % IRON SATURATION 25 % (20-55); TOTAL IRON BINDING CAPACITY 198 ug/dL (261-462)
[2017-11-23 17:32] LABS: FOLATE 6.4 ng/mL
--- NOTE | 2017-11-23 22:04 | CON ---
Copied To: Good Evans MD Attending MD: Good Evans MD DATE: 11/23/2017 LOCATION: The patient is in bed. He was seen earlier today in room 277, bed 2. CHIEF COMPLAINT: Weakness times several days. HISTORY OF PRESENT ILLNESS: An 82-year-old male with past medical history of prostate cancer stage IV with metastases with a pelvic mass biopsied in the past metastases with radiation, history of renal disease, hypertension, history of bilateral hydronephrosis requiring bilateral nephrostomy tube in the past, and history of depression and anemia. The patient admitted with syncopal episode and weakness. The patient's son and ex- brought the patient. The patient had been having shortness of breath. No fevers have been reported. There is some abdominal discomfort and the patient has had more weight loss. No headaches. No dizziness. There is no fevers, no chest pain, and there is shortness of breath. He has occasional diarrhea and dysuria. REVIEW OF SYSTEMS: Reveals a 12-point review of systems performed. PAST MEDICAL HISTORY: Significant for a prostate cancer with metastases with a pelvic mass and radiation, history of hypertension, history of renal disease, depression, and anemia. PAST SURGICAL HISTORY: Significant for bilateral nephrostomy, laparoscopic cholecystectomy, prostatectomy in the past. ALLERGIES: THE PATIENT ALSO HAS NO KNOWN ALLERGIES. MEDICATIONS AT HOME: Include metoprolol. PHYSICAL EXAMINATION: GENERAL: The patient is in bed, chronically ill, weak, debilitated. VITAL SIGNS: Temperature of 98, heart rate was 105, respiratory rate was 20, blood pressure is 98/50. The patient's BMI is 30. HEENT: Unremarkable. NECK: Supple. LUNGS: Decreased breath sounds. HEART: Normal S1, S2. ABDOMEN: Soft, nontender. No organomegaly. No rebound or guarding. LABORATORY EXAMINATION: Reveals a white count of 13,200, hemoglobin of 7, platelets of 163, patient's is 83% polys. Coagulation is noted. Blood gases are reviewed. Chemistries reveal a BUN of 92, creatinine of 3.8. The patient's bicarb is 7 with an anion gap of 23 with low calcium. The BNP at 1930. LFTs are mildly elevated. Urinalysis is positive for 20 to 25 wbc's, rbc's, bacteria, greater than 300 protein, moderate leukocyte esterase. The patient had a CAT scan of the abdomen and pelvis, which revealed distended urinary bladder and extensive peritoneal metastases, large mass, distended stomach, multiple sclerotic osseous metastases. The patient also had a chest x-ray which was reported to be negative. ASSESSMENT: This is an 82-year-old male with prostate cancer with metastases to the pelvis, mass, bone metastases, hypertension, renal disease, bilateral hydronephrosis in the past, depression, has had bilateral nephrostomy tubes in the past, now presenting with tachycardia, leukocytosis, and positive urinalysis with renal disease. 1. Sepsis with urine as the source and then we will start the patient on cefepime 1 g every 24 hours, adjusted for renal failure. We will discontinue the ceftriaxone and check on the blood cultures and the urine cultures. We will follow closely with you. The patient also did receive a dose of vancomycin and we will make further recommendations upon availability of initial results. Overall prognosis quite poor, should consider hospice setting for this patient. Good Evans MD
[2017-11-24] MEDS: Pantoprazole 40 mg EC Tab PO SCH (05:03)
[2017-11-24 07:27] LABS: BASO # 0.01 K/mm3 (0.0-2.0); BASO % 0.1 % (0.0-3.0); EOS % 0.1 % (1.5-5.0); GRAN # 11.11 (1.4-6.5); GRAN % 89.9 % (50.0-68.0); HEMOGLOBIN 7.3 g/dL (14.0-18.0); LYMPH # 0.9 (1.2-3.4); MEAN CELL VOLUME 87.2 fl (80.0-105.0); MEAN CORPUSCULAR HEMOGLOBIN 29.2 pg (25.0-35.0); MEAN CORPUSCULAR HGB CONC 33.5 g/dl (31.0-37.0); MEAN PLATELET VOLUME 9.4 fl (7.0-11.0); MONO # 0.4 (0.1-0.6); MONO % 2.9 % (1.0-6.0); RBC 2.5 10^6/uL (3.5-6.1); WHITE BLOOD COUNT 12.4 10^3/ul (4.5-11.0)
[2017-11-24 07:51] LABS: ALB/GLOB RATIO 1.1 (1.1-1.8); ALBUMIN 2.5 g/dL (3.0-4.8); CALCIUM 6.4 mg/dL (8.4-10.5)
[2017-11-24 08:09] LABS: HEPATITIS B SURFACE AG Negative (NEGATIVE)
[2017-11-24 08:14] LABS: HEPATITIS B CORE AB NEGATIVE (NEGATIVE)
[2017-11-24 08:27] LABS: HEPATITIS C ANTIBODY NEGATIVE (NEGATIVE)
[2017-11-24] MEDS: Metoprolol Succinate 25 mg XL Tab PO SCH (09:22)
[2017-11-24] MEDS: Sodium Bicarbonate 8.4% 100 MEQ in Dextrose 5% In Water 1,000 ML IV SCH (09:23)
[2017-11-24 10:41] LABS: ARTERIAL BLOOD GAS HCO3 12.1 mmol/L (21-28); ARTERIAL BLOOD GAS O2 SAT 99.4 % (95-98); ARTERIAL BLOOD GAS PCO2 23 mm/Hg (35-45); ARTERIAL BLOOD GAS PH 7.33 (7.35-7.45); ARTERIAL BLOOD GAS TCO2 12.8 mmol.L (22-28)
--- NOTE | 2017-11-24 11:16 | RAD ---
Date of service: 11/24/2017 HISTORY: sob COMPARISON: 11/22/2017 FINDINGS: LUNGS: No active pulmonary disease. PLEURA: No significant pleural effusion identified, no pneumothorax apparent. CARDIOVASCULAR: Moderate cardiomegaly. Increasing vascular congestion OSSEOUS STRUCTURES: No significant abnormalities. VISUALIZED UPPER ABDOMEN: Normal. OTHER FINDINGS: None. IMPRESSION: Increasing vascular congestion
--- NOTE | 2017-11-24 11:19 | NM ---
Date of service: 11/22/2017 COMPARISON: Portable chest 11/22/2017 TECHNIQUE: 33.0 mCi technetium 99-m DTPA 3.3 mCI technetium 99-m MAA administered intravenously. FINDINGS: VENTILATION COMPONENT: Normal. PERFUSION COMPONENT: Normal. The report concurs with the preliminary [facility] report IMPRESSION: Lowprobability ventilation perfusion scan for pulmonary embolism.
[2017-11-24] MEDS: Albuterol-Ipratrop 3 mg / 0.5 (3 ml) UD IH PRN ×2 (11:21→16:19)
[2017-11-24] MEDS ORDERED: Sodium Bicarbonate 8.4% 100 MEQ in Dextrose 5% In Water 1,000 ML IV SCH (11:29)
[2017-11-24] MEDS: Cefepime 1gm in NS 100ml 1 GM/100 ML BAG IVPB SCH (11:41)
--- NOTE | 2017-11-24 12:32 | CP.PCM.PN ---
Subjective - Date & Time of Evaluation Date of Evaluation: 11/24/17 Time of Evaluation: 12:27 - Subjective Subjective: Nephrology Consultation Note: Assessment: critical Acute Kidney Injury (N17.9) likely due to obstructive uropathy, sepsis, ATN Hypertensive Chronic Kidney Disease (I12.9) Chronic Kidney Disease (N18.4) Stage 4 with ? mg proteinuria (R80.9) likely due to obs uropathy, AKIs in past Anemia, sepsis with lactic acidosis HAGMA with respi compensation vit D def metastatic prostate CA hypocalcemia, hypomagnesemia, hypernatremia, hyperphosphatemia Plan palliative care consult to ascertain goals of care. Family (ex bedside who stated is health care proxy) and requesting comfort measures and hospice. Don't want aggressive measures and refused for dialysis Maintain hemodynamics stable. Avoid hypotension. Patient not on ACEI/ARB due to recent WALLY will stop IVF started IV lasix for respi comfort as latest CXR showed pulm congestion Dose meds/antibiotics for reduced GFR. Avoid fleets enema/magnesium based laxatives. Avoid nephrotoxins/NSAIDs/ iodinated contrast (unless needed emergently) Glycemic control Further work up/management as per primary team overall prognosis poor. Thanks for allowing me to participate in care of your patient. Please call if any Qs. had d/w team and family Dr Reid Marquez Office: [phone] Chief Complaint; weakness Reason for consult: Acute Kidney Injury HPI: Pt is a 82 M with hx of HTN, metastatic prostate CA, CKD stage 4 wtih baseline cr 1.5-2.0, had required HD in past presented with complaints of fatigue, weakness and near syncope episodes, found to have WALLY and anemia hence renal consulted Denies OTC/herbal meds or NSAIDs No recent iodinated contrast exposure. Noted obvious episodes of low BP 98/58. ROS: feels sick. ex- bedside and as per her, pt condition worsening and she wants him to comfortable but no aggressive measures. Cardiovascular: No chest pain. Pulmonary: c/o mild shortness of breath Gastrointestinal: denies abdominal pain No nausea. No vomiting. Genitourinary: No pain while urinating. Denies blood in urine. All other negative except as mentioned in HPI. overall limited due to his current illness Physical Examination: General Appearance: uncomfortable, co-operative . ill appearing. Vitals reviewed and noted as below Head; Atraumatic, normocephalic ENT: no ulcers no thrush. Tongue is midline. Oropharynx: no rash or ulcers. EYES: Pupils are equal, round and reactive to light accommodation. Eye muscles and extraocular movement intact. Sclera is anicteric. Neck; supple no lymphadenopathy, no thyromegaly or bruit Lungs: Increased respiratory rate/effort. Breath sounds bilateral basal crackles Heart: Normal rate. s1s2 normal. No rub or gallop. Extremities: no edema. No varicose veins Neurological: Patient is awake and oriented to person, place and time. but appears fatigue and bit lethargic Skin: Warm and dry. Normal turgor. No rash. Palpitation: Normal elasticity for age Abdomen: Abdomen is soft. Bowel sounds +. There is no abdominal tenderness, no guarding/rigidity no organomegaly Psych: normal insight and normal affect/mood MSK: no joint tenderness or swelling. Digits and nails normal, no deformity : kidney or bladder not palpable Labs/imaging reviewed. Past medical history, past surgical history, family history, social history, allergy reviewed and noted as below Family hx: no hx of CKD. Rest non-contributory work up: b/l hydroureteronephrosis lactic acid 4.6 UA >3+ protein with large blood Objective - Vital Signs/Intake and Output Vital Signs (last 24 hours): Temp Pulse Resp BP Pulse Ox 99 F 108 H 18 139/90 97 11/24/17 06:00 11/24/17 10:00 11/24/17 06:00 11/24/17 09:22 11/24/17 11:39 Intake and Output: 11/24/17 11/24/17 06:59 18:59 Intake Total 1200 0 Output Total 100 700 Balance 1100 -700 - Medications Medications: Current Medications Albuterol/Ipratropium (Duoneb 3 Mg/0.5 Mg (3 Ml) Ud) 3 ml IH Q2H PRN PRN Reason: Shortness of Breath Last Admin: 11/24/17 11:21 Dose: 3 ml Ergocalciferol (Drisdol 50,000 Intl Units Cap) 1 cap PO Q7D [facility]OL[facility] Last Admin: 11/23/17 14:52 Dose: 1 cap Furosemide (Lasix) 40 mg IVP Q12 JOLYNN Stop: 11/25/17 10:01 Cefepime HCl (Maxipime 1gm) 1 gm in 100 mls @ 100 mls/hr IVPB Q24H [facility]OLYNN PRN Reason: Protocol Stop: 12/02/17 11:01 Last Admin: 11/24/17 11:41 Dose: 100 mls/hr Metoprolol Succinate (Toprol Xl) 25 mg PO DAILY [facility] Last Admin: 11/24/17 09:22 Dose: 25 mg Morphine Sulfate (Morphine) 4 mg IVP Q6 PRN PRN Reason: Pain, moderate (4-7) Pantoprazole Sodium (Protonix Ec Tab) 40 mg PO 0600 [facility] Last Admin: 11/24/17 05:03 Dose: 40 mg Sodium Bicarbonate (Sodium Bicarbonate Tab) 1,300 mg PO TID [facility] Last Admin: 11/24/17 09:22 Dose: 1,300 mg - Labs Labs: 11/24/17 06:30 11/24/17 06:30 PT 13.7 SECONDS (9.4-12.5) H 11/22/17 17:00 INR 1.20 11/22/17 17:00 APTT 29.2 Seconds (25.1-36.5) 11/22/17 17:00
--- NOTE | 2017-11-24 13:27 | CP.PCM.PN ---
<Wilder Gomez - Last Filed: 11/24/17 16:53> Subjective - Date & Time of Evaluation Date of Evaluation: 11/24/17 Time of Evaluation: 08:05 - Subjective Subjective: Internal Medicine Progress Note for Dr. Samara Gomez PGY1 82M seen and evaluated at bedside this morning. No acute events overnight. This morning patient had no complaints however was noted to have labored breathing. He is satting 99% and stat ABG was ordered. Denies any shortness of breath, chest pain, abdominal pain, fever, chills, nausea, vomiting, headache, dizziness , or urinary symptoms. Family was at bedside as well and plans for goals of care were discussed with Palliative today. As of now, family and patient would like home hospice which is being set up with Social Work. Objective - Vital Signs/Intake and Output Vital Signs (last 24 hours): Temp Pulse Resp BP Pulse Ox 97.4 F L 115 H 20 135/83 97 11/24/17 12:00 11/24/17 12:00 11/24/17 12:00 11/24/17 12:36 11/24/17 11:39 Intake and Output: 11/24/17 11/24/17 06:59 18:59 Intake Total 1200 0 Output Total 100 700 Balance 1100 -700 - Medications Medications: Current Medications Albuterol/Ipratropium (Duoneb 3 Mg/0.5 Mg (3 Ml) Ud) 3 ml IH Q2H PRN PRN Reason: Shortness of Breath Last Admin: 11/24/17 11:21 Dose: 3 ml Ergocalciferol (Drisdol 50,000 Intl Units Cap) 1 cap PO Q7D [facility] Last Admin: 11/23/17 14:52 Dose: 1 cap Furosemide (Lasix) 40 mg IVP Q12 JOLYNN Stop: 11/25/17 10:01 Last Admin: 11/24/17 12:36 Dose: 40 mg Cefepime HCl (Maxipime 1gm) 1 gm in 100 mls @ 100 mls/hr IVPB Q24H [facility]OL[facility]NN PRN Reason: Protocol Stop: 12/02/17 11:01 Last Admin: 11/24/17 11:41 Dose: 100 mls/hr Metoprolol Succinate (Toprol Xl) 25 mg PO DAILY [facility] Last Admin: 11/24/17 09:22 Dose: 25 mg Morphine Sulfate (Morphine) 4 mg IVP Q6 PRN PRN Reason: Pain, moderate (4-7) Pantoprazole Sodium (Protonix Ec Tab) 40 mg PO 0600 [facility] Last Admin: 11/24/17 05:03 Dose: 40 mg Sodium Bicarbonate (Sodium Bicarbonate Tab) 1,300 mg PO TID [facility] Last Admin: 11/24/17 09:22 Dose: 1,300 mg - Labs Labs: 11/24/17 06:30 11/24/17 06:30 PT 13.7 SECONDS (9.4-12.5) H 11/22/17 17:00 INR 1.20 11/22/17 17:00 APTT 29.2 Seconds (25.1-36.5) 11/22/17 17:00 - Constitutional Appears: Non-toxic, No Acute Distress, Chronically Ill - Head Exam Head Exam: ATRAUMATIC, NORMAL INSPECTION, NORMOCEPHALIC - Eye Exam Eye Exam: EOMI Pupil Exam: PERRL - ENT Exam ENT Exam: Mucous Membranes Dry - Respiratory Exam Respiratory Exam: Accessory Muscle Use. absent: Wheezes, Respiratory Distress - Cardiovascular Exam Cardiovascular Exam: REGULAR RHYTHM, +S1, +S2. absent: Murmur - GI/Abdominal Exam GI & Abdominal Exam: Soft, Normal Bowel Sounds. absent: Tenderness - Extremities Exam Extremities Exam: absent: Pedal Edema, Tenderness - Neurological Exam Neurological Exam: Alert, Awake. absent: Oriented x3 Assessment and Plan - Assessment and Plan (Free Text) Assessment: 82M, PMH of prostate cancer with bone and peritoneal metastases, chronic kidney disease, anemia, HTN, bilateral hydronephrosis, and depression, admitted for syncopal episode, shortness of breath, and abdominal distention. Patient and family discussed goals of care with Palliative and have decided on Home Hospice. Plan: 1. Syncopal Episode - Likely secondary to malignant disease process - Patient continues to be uncooperative regarding history. States "no" for every question - Head CT: no acute intracranial findings - CXR: increased vascular congestion - PT/OT pending evaluation 2. Metastatic Prostate Cancer stage 4 - History of metastatic prostate cancer s/p prostatectomy and radiation - CTAP: metastasis to peritoneum and bone - PSA 309 - Hem/onc, Dr. Llamas consulted, recommendations appreciated - Urology Dr. Narcisa Mckeon consulted, recommendations appreciated - Palliative care, Dr. Heaton consulted: patient and family agree to Home Hospice 3. Chronic Normocytic Anemia - Likely secondary to chronic disease - H/H 7.3/21.8 today - Transfused 1u PRBC yesterday - Continue to monitor 4. UTI - UA: mod leukocyte esterase, 20-25 WBC, large blood - WBC 12 today - Follow up urine and blood cultures - Continue Cefepime 5. WALLY on CKD - BUN/Cr: 111/3.9 - [place] overnight output 700cc red/pink/clear - BNP: 1930 - ECHO pending - CT abdomen: b/l atrophic kidneys, ureteral stents in place, b/l hydrouretonephrosis - f/u urine spot protein, cr, albumin/cr ratio - f/u 25-OH Vit D, iPTH, Phosph, HIV, Hep B/C - Continue sodium bicarb 1300 TID and Ergocalciferol per nephro - Lasix 40mg IV Q12 - Nephro consulted, Dr. Marquez, recommendations appreciated 6. Elevated D-Dimer - likely secondary to metastatic prostate cancer - D-dimer: 4986 - V/Q scan: Non suggestive of pulmonary embolism 7. Hypocalcemia - Likely secondary to bony metastases - Calcium: 6.4 - Vitamin D 12.8 - Ca gluconate given - Continue to monitor 8. History of HTN - BP: 131/81 - Continue home metoprolol - Continue to monitor GI prophylaxis: protonix 40 DVT prophylaxis: SCD Diet: Regular Dispo: Patient to go to Home Hospice Friday after 4pm per Case Management. Will continue to follow up regarding discharge home once ready. Case reviewed and discussed with Dr. Rashawn Gomez PGY1 <Samara Morocho R - Last Filed: 11/25/17 07:29> Objective - Vital Signs/Intake and Output Vital Signs (last 24 hours): Temp Pulse Resp BP Pulse Ox 98.9 F 125 H 24 118/68 96 11/25/17 06:00 11/25/17 06:00 11/25/17 06:00 11/25/17 06:00 11/25/17 06:00 Intake and Output: 11/25/17 11/25/17 06:59 18:59 Intake Total 0 Output Total 500 500 Balance -500 -500 - Medications Medications: Current Medications Albuterol/Ipratropium (Duoneb 3 Mg/0.5 Mg (3 Ml) Ud) 3 ml IH Q2H PRN PRN Reason: Shortness of Breath Last Admin: 11/24/17 16:19 Dose: 3 ml Ergocalciferol (Drisdol 50,000 Intl Units Cap) 1 cap PO Q7D [facility] Last Admin: 11/23/17 14:52 Dose: 1 cap Furosemide (Lasix) 40 mg IVP Q12 [facility] Stop: 11/25/17 10:01 Last Admin: 11/24/17 21:49 Dose: 40 mg Cefepime HCl (Maxipime 1gm) 1 gm in 100 mls @ 100 mls/hr IVPB Q24H [facility] PRN Reason: Protocol Stop: 12/02/17 11:01 Last Admin: 11/24/17 11:41 Dose: 100 mls/hr Metoprolol Succinate (Toprol Xl) 25 mg PO DAILY [facility] Last Admin: 11/24/17 09:22 Dose: 25 mg Morphine Sulfate (Morphine) 4 mg IVP Q6 PRN PRN Reason: Pain, moderate (4-7) Pantoprazole Sodium (Protonix Ec Tab) 40 mg PO 0600 [facility] Last Admin: 11/25/17 06:34 Dose: Not Given Sodium Bicarbonate (Sodium Bicarbonate Tab) 1,300 mg PO TID [facility] Last Admin: 11/24/17 17:41 Dose: 1,300 mg - Labs Labs: 11/24/17 06:30 11/25/17 06:30 PT 13.7 SECONDS (9.4-12.5) H 11/22/17 17:00 INR 1.20 11/22/17 17:00 APTT 29.2 Seconds (25.1-36.5) 11/22/17 17:00 Attending/Attestation - Attestation I have personally seen and examined this patient.: Yes I have fully participated in the care of the patient.: Yes I have reviewed all pertinent clinical information, including history, physical exam and plan: Yes Notes (Text): Patient seen and examined by me at 10:10AM with resident 11/24/17. Case including HPI, physical exam, and assessment and plan discussed with resident. Agree with above with following additions/corrections. Patient is an 82-year-old male with past medical history significant for metastatic prostate cancer stage IV, chronic kidney disease stage IV, anemia, hypertension, bilateral hydronephrosis, and depression that presented to the emergency room with near syncope. Patient states he is not feeling as well today. Patient having difficulty breathing per family. Patient is denying shortness of breath. No chest pain. No dizziness or headaches. No difficulty urinating. No dysuria. No nausea, vomiting , or abdominal pain. No fevers or chills. Physical exam: Gen: Awake and alert lying in bed in no acute distress. HEENT: Normocephalic, atraumatic. Extraocular muscles intact, pupils equal reactive. No scleral icterus. Oropharynx is pink and moist. Neck is supple. Cardiovascular: Regular rhythm. Normal S1 and S2. No murmurs, rubs, or gallops appreciated Pulmonary: Mildy tachypneic. Decreased breath sounds. Using accessory muscles. No rhonchi, rales, or wheezing appreciated Gastrointestinal: Soft, nontender, distended. Positive bowel sounds all 4 quadrants, no guarding. Musculoskeletal: Moves all extremites. No calf tenderness. Central nervous system: Awake and alert Dermatologic: Skin warm and dry Assessment and plan: Patient is an 82-year-old male with past medical history significant for metastatic prostate cancer stage IV, chronic kidney disease stage IV, anemia, hypertension, bilateral hydronephrosis, and depression that presented to the emergency room with near syncope. 1. Respiratory distress. ABG reviewed. Chest xray per radiologist shows increasing vascular congestion. IV fluids stopped. Started on Lasix. Continue O2 via nasal cannula as needed. 2. Sepsis secondary to possible UTI, however urine culture negative. Blood cultures negative so far. Continue cefepime. ID following, recommendations appreciated. Pro-calcitonin elevated at 1.28. Lactate normalized. Positive leukocytosis. Patient is afebrile. Case was discussed in detail with patient regarding current diagnosis and treatment plan. CT abdomen and pelvis per radiologist shows redemonstration of extensive peritoneal metastases with a large mass in the left mid abdomen, distended stomach with ingested debris, multiple sclerotic osseous metastases, bilateral atrophic kidneys, ureteral stents remain in place, bilateral hydroureteronephrosis. 3. Near syncopal episode. May be secondary to sepsis and anemia. Head CT per radiologist shows no acute intracranial abnormality, mild chronic microangiopathic changes and moderate age-related global parenchymal volume loss. 4. Metastatic Prostate Cancer. Metastases to peritoneum and bone. Oncology consulted. Palliative care following. Family has decided on home hospice. 5. Anemia. Likely secondary to malignancy. Improved. S/P 1 unit packed red blood cells. Hematology/oncology consulted. Stool for occult blood pending. Continue to monitor H&H 6. Abdominal distention. Improved per patient. Likely secondary to large mass in the mid left abdomen seen on CT. Continue to monitor 7. WALLY on CKD. Metabolic acidosis. Likely due to obstructive uropathy. Bicarb drip was stopped secondary to increased vascular congestion. Started on PO sodium bicarbonate. CT abdomen and pelvis shows bilateral hydroureteronephrosis. Nephrology consulted, recommendations appreciated. Urology consulted, follow up recommendations. 8. Elevated D-dimer. Likely secondary to malignancy. V/Q scan per radiologist shows low probability for V/Q scan. 9. Hypocalcemia/Vitamin D deficiency. Calcium gluconate given. Continue Vitamin D. 10. Hypomagnesemia. Resolved. Continue to monitor. 11. Hypertension. Continue home metoprolol 12. GI/DVT prophylaxis. Protonix and heparin 13. Advanced directive. Patient is DNR/DNI. Palliative care consulted for possible hospice care. Case discussed in detail with the patient and patient's family at bedside regarding current diagnosis and treatment plan.
--- NOTE | 2017-11-24 19:24 | CP.PCM.CON ---
History of Present Illness - History of Present Illness History of Present Illness: Uroloogy Consutlation Past Patient History - Infectious Disease Hx of Infectious Diseases: None - Tetanus Immunizations Tetanus Immunization: Unknown - Past Medical History & Family History Past Medical History?: Yes - Past Social History Smoking Status: Never Smoked - CARDIAC Hx Cardiac Disorders: Yes Hx Hypertension: Yes - PULMONARY Hx Respiratory Disorders: No - NEUROLOGICAL Hx Neurological Disorder: No - HEENT Hx HEENT Problems: No - RENAL Hx Chronic Kidney Disease: Yes - ENDOCRINE/METABOLIC Hx Endocrine Disorders: Yes Hx Diabetes Mellitus Type 2: Yes - HEMATOLOGICAL/ONCOLOGICAL Hx Blood Disorders: Yes Hx Anemia: Yes Hx Blood Transfusions: Yes Hx Cancer: Yes (Prostate) - INTEGUMENTARY Hx Dermatological Problems: No - MUSCULOSKELETAL/RHEUMATOLOGICAL Hx Musculoskeletal Disorders: No Hx Falls: No - GASTROINTESTINAL Hx Vomiting: Yes - GENITOURINARY/GYNECOLOGICAL Hx Genitourinary Disorders: Yes Hx Prostate Cancer: Yes Hx Prostate Problems: Yes Hx Urinary Tract Infection: Yes (05-09-) Other/Comment: HAD BILATERAL NEPHROSTOMY WERE REMOVED - PSYCHIATRIC Hx Psychophysiologic Disorder: No Hx Substance Use: No - SURGICAL HISTORY Hx Cholecystectomy: Yes Other/Comment: HX NEPHROSTOMY - ANESTHESIA Hx Anesthesia: Yes Hx Anesthesia Reactions: No Hx Malignant Hyperthermia: No Meds Allergies/Adverse Reactions: Allergies Allergy/AdvReac Type Severity Reaction Status Date / Time No Known Allergies Allergy Verified 11/22/17 16:52 - Medications Medications: Current Medications Albuterol/Ipratropium (Duoneb 3 Mg/0.5 Mg (3 Ml) Ud) 3 ml IH Q2H PRN PRN Reason: Shortness of Breath Last Admin: 11/24/17 16:19 Dose: 3 ml Ergocalciferol (Drisdol 50,000 Intl Units Cap) 1 cap PO Q7D [facility] Last Admin: 11/23/17 14:52 Dose: 1 cap Furosemide (Lasix) 40 mg IVP Q12 [facility] Stop: 11/25/17 10:01 Last Admin: 11/24/17 12:36 Dose: 40 mg Cefepime HCl (Maxipime 1gm) 1 gm in 100 mls @ 100 mls/hr IVPB Q24H [facility] PRN Reason: Protocol Stop: 12/02/17 11:01 Last Admin: 11/24/17 11:41 Dose: 100 mls/hr Metoprolol Succinate (Toprol Xl) 25 mg PO DAILY [facility] Last Admin: 11/24/17 09:22 Dose: 25 mg Morphine Sulfate (Morphine) 4 mg IVP Q6 PRN PRN Reason: Pain, moderate (4-7) Pantoprazole Sodium (Protonix Ec Tab) 40 mg PO 0600 [facility] Last Admin: 11/24/17 05:03 Dose: 40 mg Sodium Bicarbonate (Sodium Bicarbonate Tab) 1,300 mg PO TID [facility] Last Admin: 11/24/17 17:41 Dose: 1,300 mg Results - Vital Signs Recent Vital Signs: Last Vital Signs Temp 97.8 F 11/24/17 18:00 Pulse 164 H 11/24/17 18:00 Resp 24 11/24/17 18:00 BP 123/78 11/24/17 18:00 Pulse Ox 97 11/24/17 18:00 - Labs Result Diagrams: 11/24/17 06:30 11/24/17 06:30 Labs: Laboratory Results - last 24 hr 11/23/17 11/23/17 11/24/17 13:00 13:00 06:30 WBC RBC Hgb Hct MCV MCH MCHC RDW Plt Count MPV Gran % Lymph % (Auto) [place] % (Auto) Eos % (Auto) Baso % (Auto) Gran # Lymph # (Auto) [place] # (Auto) Eos # (Auto) Baso # (Auto) pCO2 pO2 HCO3 ABG pH ABG Total CO2 ABG O2 Saturation ABG Base Excess ABG Potassium Glucose Lactate FiO2 Sodium Potassium Chloride Carbon Dioxide Anion Gap BUN Creatinine Est GFR ( Amer) Est GFR (Non-Af Amer) Random Glucose Calcium Phosphorus Magnesium Total Bilirubin AST ALT Alkaline Phosphatase Total Protein Albumin Globulin Albumin/Globulin Ratio Arterial Blood Potassium Hep Bs Antigen Negative Hep Bs Antibody Negative Hep B Core IgM Ab Negative Hepatitis C Antibody Negative HIV 1&2 Antibody Screen Cancelled 11/24/17 11/24/17 11/24/17 06:30 06:30 10:30 WBC 12.4 H RBC 2.50 L Hgb 7.3 L Hct 21.8 L MCV 87.2 MCH 29.2 MCHC 33.5 RDW 20.0 H Plt Count 121 MPV 9.4 Gran % 89.9 H Lymph % (Auto) 7.0 L [place] % (Auto) 2.9 Eos % (Auto) 0.1 L Baso % (Auto) 0.1 Gran # 11.11 H Lymph # (Auto) 0.9 L [place] # (Auto) 0.4 Eos # (Auto) 0.0 Baso # (Auto) 0.01 pCO2 23 L pO2 93.0 HCO3 12.1 L ABG pH 7.33 L ABG Total CO2 12.8 L ABG O2 Saturation 99.4 H ABG Base Excess -11.8 L ABG Potassium 3.6 Glucose 164 H Lactate 1.7 FiO2 28.0 Sodium 147 144.0 Potassium 4.2 Chloride 119 H 119.0 H Carbon Dioxide 12 L Anion Gap 21 H BUN 111 H Creatinine 3.9 H Est GFR ( Amer) 18 Est GFR (Non-Af Amer) 15 Random Glucose 166 H Calcium 6.4 L* Phosphorus 5.4 H Magnesium 1.8 Total Bilirubin 0.8 AST 32 ALT 68 H Alkaline Phosphatase 70 Total Protein 4.7 L Albumin 2.5 L Globulin 2.2 Albumin/Globulin Ratio 1.1 Arterial Blood Potassium 3.6 Hep Bs Antigen Hep Bs Antibody Hep B Core IgM Ab Hepatitis C Antibody HIV 1&2 Antibody Screen Assessment & Plan - Assessment and Plan (Free Text) Assessment: IMP: Prostate carcinoma Metastatic disease 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
--- NOTE | 2017-11-24 19:53 | CP.PCM.CON ---
History of Present Illness - History of Present Illness History of Present Illness: The patient is to be seen by Dr. Jain 82 yo man with diagnosis of metastatic prostate cancer, S/P radical prostatectomy several years prior,found to have mets to the Lymph nodes and pelvis, first diagnosed with mets around 2013, started on Taxotere, then switched to androgen receptor inhibitors , later to local radiation to the pelvic mass when he had disease progression and more recently to Jevtana chemo. For the past 2 months the patient has been getting weaker, with increasing PSA, anemia, increasing creatinine and hydronephrosis secondary to the enlarging pelvic mass. He has been off all treatments for the past several weeks. The family is aware of the advanced, terminal nature of the cancer and is agreeable to hospice. [facility] has been contacted. Past Patient History - Infectious Disease Hx of Infectious Diseases: None - Tetanus Immunizations Tetanus Immunization: Unknown - Past Medical History & Family History Past Medical History?: Yes - Past Social History Smoking Status: Never Smoked - CARDIAC Hx Cardiac Disorders: Yes Hx Hypertension: Yes - PULMONARY Hx Respiratory Disorders: No - NEUROLOGICAL Hx Neurological Disorder: No - HEENT Hx HEENT Problems: No - RENAL Hx Chronic Kidney Disease: Yes - ENDOCRINE/METABOLIC Hx Endocrine Disorders: Yes Hx Diabetes Mellitus Type 2: Yes - HEMATOLOGICAL/ONCOLOGICAL Hx Blood Disorders: Yes Hx Anemia: Yes Hx Blood Transfusions: Yes Hx Cancer: Yes (Prostate) - INTEGUMENTARY Hx Dermatological Problems: No - MUSCULOSKELETAL/RHEUMATOLOGICAL Hx Musculoskeletal Disorders: No Hx Falls: No - GASTROINTESTINAL Hx Vomiting: Yes - GENITOURINARY/GYNECOLOGICAL Hx Genitourinary Disorders: Yes Hx Prostate Cancer: Yes Hx Prostate Problems: Yes Hx Urinary Tract Infection: Yes (2-9-15) Other/Comment: HAD BILATERAL NEPHROSTOMY WERE REMOVED - PSYCHIATRIC Hx Psychophysiologic Disorder: No Hx Substance Use: No - SURGICAL HISTORY Hx Cholecystectomy: Yes Other/Comment: HX NEPHROSTOMY - ANESTHESIA Hx Anesthesia: Yes Hx Anesthesia Reactions: No Hx Malignant Hyperthermia: No Meds Allergies/Adverse Reactions: Allergies Allergy/AdvReac Type Severity Reaction Status Date / Time No Known Allergies Allergy Verified 11/22/17 16:52 - Medications Medications: Current Medications Albuterol/Ipratropium (Duoneb 3 Mg/0.5 Mg (3 Ml) Ud) 3 ml IH Q2H PRN PRN Reason: Shortness of Breath Last Admin: 11/24/17 16:19 Dose: 3 ml Ergocalciferol (Drisdol 50,000 Intl Units Cap) 1 cap PO Q7D [facility] Last Admin: 11/23/17 14:52 Dose: 1 cap Furosemide (Lasix) 40 mg IVP Q12 [facility] Stop: 11/25/17 10:01 Last Admin: 11/24/17 12:36 Dose: 40 mg Cefepime HCl (Maxipime 1gm) 1 gm in 100 mls @ 100 mls/hr IVPB Q24H [facility] PRN Reason: Protocol Stop: 12/02/17 11:01 Last Admin: 11/24/17 11:41 Dose: 100 mls/hr Metoprolol Succinate (Toprol Xl) 25 mg PO DAILY [facility] Last Admin: 11/24/17 09:22 Dose: 25 mg Morphine Sulfate (Morphine) 4 mg IVP Q6 PRN PRN Reason: Pain, moderate (4-7) Pantoprazole Sodium (Protonix Ec Tab) 40 mg PO 0600 [facility] Last Admin: 11/24/17 05:03 Dose: 40 mg Sodium Bicarbonate (Sodium Bicarbonate Tab) 1,300 mg PO TID [facility] Last Admin: 11/24/17 17:41 Dose: 1,300 mg Results - Vital Signs Recent Vital Signs: Last Vital Signs Temp 97.8 F 11/24/17 18:00 Pulse 164 H 11/24/17 18:00 Resp 24 11/24/17 18:00 BP 123/78 11/24/17 18:00 Pulse Ox 97 11/24/17 18:00 - Labs Result Diagrams: 11/24/17 06:30 11/24/17 06:30 Labs: Laboratory Results - last 24 hr 11/23/17 11/23/17 11/24/17 13:00 13:00 06:30 WBC RBC Hgb Hct MCV MCH MCHC RDW Plt Count MPV Gran % Lymph % (Auto) [place] % (Auto) Eos % (Auto) Baso % (Auto) Gran # Lymph # (Auto) [place] # (Auto) Eos # (Auto) Baso # (Auto) pCO2 pO2 HCO3 ABG pH ABG Total CO2 ABG O2 Saturation ABG Base Excess ABG Potassium Glucose Lactate FiO2 Sodium Potassium Chloride Carbon Dioxide Anion Gap BUN Creatinine Est GFR ( Amer) Est GFR (Non-Af Amer) Random Glucose Calcium Phosphorus Magnesium Total Bilirubin AST ALT Alkaline Phosphatase Total Protein Albumin Globulin Albumin/Globulin Ratio Arterial Blood Potassium Hep Bs Antigen Negative Hep Bs Antibody Negative Hep B Core IgM Ab Negative Hepatitis C Antibody Negative HIV 1&2 Antibody Screen Cancelled 11/24/17 11/24/17 11/24/17 06:30 06:30 10:30 WBC 12.4 H RBC 2.50 L Hgb 7.3 L Hct 21.8 L MCV 87.2 MCH 29.2 MCHC 33.5 RDW 20.0 H Plt Count 121 MPV 9.4 Gran % 89.9 H Lymph % (Auto) 7.0 L [place] % (Auto) 2.9 Eos % (Auto) 0.1 L Baso % (Auto) 0.1 Gran # 11.11 H Lymph # (Auto) 0.9 L [place] # (Auto) 0.4 Eos # (Auto) 0.0 Baso # (Auto) 0.01 pCO2 23 L pO2 93.0 HCO3 12.1 L ABG pH 7.33 L ABG Total CO2 12.8 L ABG O2 Saturation 99.4 H ABG Base Excess -11.8 L ABG Potassium 3.6 Glucose 164 H Lactate 1.7 FiO2 28.0 Sodium 147 144.0 Potassium 4.2 Chloride 119 H 119.0 H Carbon Dioxide 12 L Anion Gap 21 H BUN 111 H Creatinine 3.9 H Est GFR ( Amer) 18 Est GFR (Non-Af Amer) 15 Random Glucose 166 H Calcium 6.4 L* Phosphorus 5.4 H Magnesium 1.8 Total Bilirubin 0.8 AST 32 ALT 68 H Alkaline Phosphatase 70 Total Protein 4.7 L Albumin 2.5 L Globulin 2.2 Albumin/Globulin Ratio 1.1 Arterial Blood Potassium 3.6 Hep Bs Antigen Hep Bs Antibody Hep B Core IgM Ab Hepatitis C Antibody HIV 1&2 Antibody Screen
[2017-11-25 06:32] VITALS: TEMP 98.9; O2SAT 96
[2017-11-25] MEDS: Pantoprazole 40 mg EC Tab PO SCH (06:34)
[2017-11-25 06:53] LABS: BASO # 0.01 K/mm3 (0.0-2.0); BASO % 0.1 % (0.0-3.0); GRAN # 11.81 (1.4-6.5); GRAN % 90.9 % (50.0-68.0); LYMPH # 0.9 (1.2-3.4); LYMPH % 6.7 % (22.0-35.0); MEAN CELL VOLUME 87.1 fl (80.0-105.0); MEAN CORPUSCULAR HEMOGLOBIN 29.6 pg (25.0-35.0); MEAN PLATELET VOLUME 9.7 fl (7.0-11.0); MONO # 0.3 (0.1-0.6); MONO % 2.3 % (1.0-6.0); PLATELET COUNT 113 10^3/uL (120.0-450.0); RBC 2.33 10^6/uL (3.5-6.1); RED CELL DISTRIBUTION WIDTH 20.4 % (11.5-14.5)
[2017-11-25 07:07] LABS: ALB/GLOB RATIO 1.2 (1.1-1.8); ALBUMIN 2.4 g/dL (3.0-4.8); CALCIUM 6.4 mg/dL (8.4-10.5)
[2017-11-25 07:42] LABS: HEMOGLOBIN 6.9 g/dL (14.0-18.0)
[2017-11-25 08:15] LABS: LYMPHOCYTE 5 % (22.0-35.0); MONOCYTE 1 % (1.0-6.0); NEUTROPHIL 94 % (50.0-70.0); NUCLEATED RED BLOOD CELL 1 %
[2017-11-25 08:16] LABS: ANISOCYTOSIS SLIGHT; PLATELET ESTIMATE LOW (NORMAL); POIKILOCYTOSIS SLIGHT; SCHISTOCYTES SLIGHT
--- NOTE | 2017-11-25 08:36 | PN ---
Copied To: Good Evans MD Attending MD: Good Evans MD DATE: 11/24/2017 SUBJECTIVE: The patient is in bed in no acute distress, nontoxic. PHYSICAL EXAMINATION: VITAL SIGNS: Temperature is 97, blood pressure is 120/70, respiratory rate 24, heart rate of 164. HEENT: Unremarkable. NECK: Supple. LUNGS: Have decreased breath sounds. HEART: Normal S1, S2. ABDOMEN: Soft, nontender. LABORATORY EXAMINATION: Reveals a white count of 12,400, hemoglobin of 7 and platelets of 121. Chemistries reveals a BUN of 111, creatinine of 3.9. Urinalysis is noted. HIV and hepatitis profile is negative. Microbiology is negative blood cultures and urine cultures, and review of orders reveals the patient to be on cefepime. Consultation by Dr. Llamas is noted. Hospice care is being considered. ASSESSMENT AND PLAN: This is an 82-year-old male admitted with history of prostate cancer, metastases to pelvis mass and bone metastases, hypertension, renal disease, bilateral hydronephrosis in the past, depression, had bilateral nephrostomy tubes in the past, presented with tachycardia, leukocytosis and positive urinalysis and renal disease with sepsis, urine is the source, also the urine culture is reported to be negative. The urinalysis was significant. Urine culture and blood cultures are negative. We will discontinue cefepime within the next 24 hours and supportive care and possible hospice setting. Good Evans MD
--- NOTE | 2017-11-25 09:16 | CP.PCM.CON ---
History of Present Illness - History of Present Illness History of Present Illness: Palliative consult requested by Dr Rukhsana Romo Reason: Goals of care 82 year old male with history of metastatic prostate cancer, renal disease and HTN who presented on 11/22/17 with weakness,occasional diarrhea, abdominal discomfort and shortness of breath. He denied fever, chills, nausea, vomiting, chest pain, head ache,dizziness. CT of abdomen showed distended urinary bladder and extensive peritoneal metastasis with large mass left mid abdomen, multiple sclerotic osseous metastasis. Chest x ray negative. CT of head with no acute findings. Labs: Wbc 13.2, Hgb 7.9, Plt 163, Na 145, K 4.5, BUN 92, creat 3.8, Calcium 6.8 , Alt 67, LDH 1152, BNP 1930, albumin 2.6. Urine positive protein, ketones, leukocytes and blood. [place] cultures negative PMHx: metastatic prostate cancer s/p radiation therapy and chemotherapy, HTN, renal disease,anemia, depression. PSH: bilateral nephrostomy tubes, prostatectomy, cholecystectomy. Social History:Never smoker, no alcohol or drug use. Lives with family. Family History:Non contributory Advance Care Planning: The patient does not have an advanced directive, he is DNR/DNI. Review of Systems : As per HPI, otherwise negative 12 point review Past Patient History - Infectious Disease Hx of Infectious Diseases: None - Tetanus Immunizations Tetanus Immunization: Unknown - Past Medical History & Family History Past Medical History?: Yes - Past Social History Smoking Status: Never Smoked - CARDIAC Hx Cardiac Disorders: Yes Hx Hypertension: Yes - PULMONARY Hx Respiratory Disorders: No - NEUROLOGICAL Hx Neurological Disorder: No - HEENT Hx HEENT Problems: No - RENAL Hx Chronic Kidney Disease: Yes - ENDOCRINE/METABOLIC Hx Endocrine Disorders: Yes Hx Diabetes Mellitus Type 2: Yes - HEMATOLOGICAL/ONCOLOGICAL Hx Blood Disorders: Yes Hx Anemia: Yes Hx Blood Transfusions: Yes Hx Cancer: Yes (Prostate) - INTEGUMENTARY Hx Dermatological Problems: No - MUSCULOSKELETAL/RHEUMATOLOGICAL Hx Musculoskeletal Disorders: No Hx Falls: No - GASTROINTESTINAL Hx Vomiting: Yes - GENITOURINARY/GYNECOLOGICAL Hx Genitourinary Disorders: Yes Hx Prostate Cancer: Yes Hx Prostate Problems: Yes Hx Urinary Tract Infection: Yes (2-9-15) Other/Comment: HAD BILATERAL NEPHROSTOMY WERE REMOVED - PSYCHIATRIC Hx Psychophysiologic Disorder: No Hx Substance Use: No - SURGICAL HISTORY Hx Cholecystectomy: Yes Other/Comment: HX NEPHROSTOMY - ANESTHESIA Hx Anesthesia: Yes Hx Anesthesia Reactions: No Hx Malignant Hyperthermia: No Meds Allergies/Adverse Reactions: Allergies Allergy/AdvReac Type Severity Reaction Status Date / Time No Known Allergies Allergy Verified 11/22/17 16:52 - Medications Medications: Current Medications Albuterol/Ipratropium (Duoneb 3 Mg/0.5 Mg (3 Ml) Ud) 3 ml IH Q2H PRN PRN Reason: Shortness of Breath Last Admin: 11/24/17 16:19 Dose: 3 ml Ergocalciferol (Drisdol 50,000 Intl Units Cap) 1 cap PO Q7D [facility] Last Admin: 11/23/17 14:52 Dose: 1 cap Furosemide (Lasix) 40 mg IVP Q12 [facility] Stop: 11/25/17 10:01 Last Admin: 11/24/17 21:49 Dose: 40 mg Cefepime HCl (Maxipime 1gm) 1 gm in 100 mls @ 100 mls/hr IVPB Q24H [facility] PRN Reason: Protocol Stop: 12/02/17 11:01 Last Admin: 11/24/17 11:41 Dose: 100 mls/hr Metoprolol Succinate (Toprol Xl) 25 mg PO DAILY [facility] Last Admin: 11/24/17 09:22 Dose: 25 mg Morphine Sulfate (Morphine) 4 mg IVP Q6 PRN PRN Reason: Pain, moderate (4-7) Pantoprazole Sodium (Protonix Ec Tab) 40 mg PO 0600 [facility] Last Admin: 11/25/17 06:34 Dose: Not Given Sodium Bicarbonate (Sodium Bicarbonate Tab) 1,300 mg PO TID [facility] Last Admin: 11/24/17 17:41 Dose: 1,300 mg Physical Exam - Constitutional Appears: Chronically Ill - Head Exam Head Exam: NORMOCEPHALIC - Eye Exam Eye Exam: Normal appearance, PERRL - ENT Exam ENT Exam: Mucous Membranes Moist - Neck Exam Neck exam: Positive for: Normal Inspection - Respiratory Exam Respiratory Exam: Decreased Breath Sounds, NORMAL BREATHING PATTERN - Cardiovascular Exam Cardiovascular Exam: REGULAR RHYTHM, +S1, +S2 - GI/Abdominal Exam GI & Abdominal Exam: Hypoactive Bowel Sounds, Soft, Tenderness - Extremities Exam Extremities exam: Positive for: pedal edema, pedal pulses present - Back Exam Back exam: NORMAL INSPECTION - Neurological Exam Additional comments: lethargic - Skin Skin Exam: Dry, Pallor - Additional Findings Additional findings: Palliative performance scale rating 30% Results - Vital Signs Recent Vital Signs: Last Vital Signs Temp 98.9 F 11/25/17 06:00 Pulse 125 H 11/25/17 06:00 Resp 24 11/25/17 06:00 BP 118/68 11/25/17 06:00 Pulse Ox 96 11/25/17 06:00 - Labs Result Diagrams: 11/25/17 06:30 11/25/17 06:30 Labs: Laboratory Results - last 24 hr 11/23/17 11/23/17 11/23/17 13:00 22:00 22:00 WBC RBC Hgb Hct MCV MCH MCHC RDW Plt Count MPV Gran % Lymph % (Auto) [place] % (Auto) Eos % (Auto) Baso % (Auto) Gran # Lymph # (Auto) [place] # (Auto) Eos # (Auto) Baso # (Auto) Neutrophils % (Manual) Lymphocytes % (Manual) Monocytes % (Manual) Nucleated RBC % Platelet Evaluation Poikilocytosis (manual Anisocytosis (manual) Schistocytes pCO2 pO2 HCO3 ABG pH ABG Total CO2 ABG O2 Saturation ABG Base Excess ABG Potassium Glucose Lactate FiO2 Sodium Potassium Chloride Carbon Dioxide Anion Gap BUN Creatinine Est GFR ( Amer) Est GFR (Non-Af Amer) Random Glucose Calcium Phosphorus Magnesium Total Bilirubin AST ALT Alkaline Phosphatase Total Protein Albumin Globulin Albumin/Globulin Ratio Arterial Blood Potassium Ur Random Creatinine 42 U Random Total Protein 3015 H Urine Total Volume 22.0 Microalb/Creat Ratio 527 H Hep Bs Antibody HIV 1&2 Antibody Screen Cancelled 11/24/17 11/24/17 11/24/17 06:30 06:30 10:30 WBC RBC Hgb Hct MCV MCH MCHC RDW Plt Count MPV Gran % Lymph % (Auto) [place] % (Auto) Eos % (Auto) Baso % (Auto) Gran # Lymph # (Auto) [place] # (Auto) Eos # (Auto) Baso # (Auto) Neutrophils % (Manual) Lymphocytes % (Manual) Monocytes % (Manual) Nucleated RBC % Platelet Evaluation Poikilocytosis (manual Anisocytosis (manual) Schistocytes pCO2 23 L pO2 93.0 HCO3 12.1 L ABG pH 7.33 L ABG Total CO2 12.8 L ABG O2 Saturation 99.4 H ABG Base Excess -11.8 L ABG Potassium 3.6 Glucose 164 H Lactate 1.7 FiO2 28.0 Sodium 147 144.0 Potassium 4.2 Chloride 119 H 119.0 H Carbon Dioxide 12 L Anion Gap 21 H BUN 111 H Creatinine 3.9 H Est GFR ( Amer) 18 Est GFR (Non-Af Amer) 15 Random Glucose 166 H Calcium 6.4 L* Phosphorus 5.4 H Magnesium 1.8 Total Bilirubin 0.8 AST 32 ALT 68 H Alkaline Phosphatase 70 Total Protein 4.7 L Albumin 2.5 L Globulin 2.2 Albumin/Globulin Ratio 1.1 Arterial Blood Potassium 3.6 Ur Random Creatinine U Random Total Protein Urine Total Volume Microalb/Creat Ratio Hep Bs Antibody Negative HIV 1&2 Antibody Screen 11/25/17 11/25/17 06:30 06:30 WBC 13.0 H RBC 2.33 L Hgb 6.9 L* Hct 20.3 L* MCV 87.1 MCH 29.6 MCHC 34.0 RDW 20.4 H Plt Count 113 L MPV 9.7 Gran % 90.9 H Lymph % (Auto) 6.7 L [place] % (Auto) 2.3 Eos % (Auto) 0.0 L Baso % (Auto) 0.1 Gran # 11.81 H Lymph # (Auto) 0.9 L [place] # (Auto) 0.3 Eos # (Auto) 0.0 Baso # (Auto) 0.01 Neutrophils % (Manual) 94 H Lymphocytes % (Manual) 5 L Monocytes % (Manual) 1 Nucleated RBC % 1 Platelet Evaluation Low Poikilocytosis (manual Slight Anisocytosis (manual) Slight Schistocytes Slight pCO2 pO2 HCO3 ABG pH ABG Total CO2 ABG O2 Saturation ABG Base Excess ABG Potassium Glucose Lactate FiO2 Sodium 149 H Potassium 4.1 Chloride 117 H Carbon Dioxide 14 L Anion Gap 22 H BUN > 120 H* Creatinine 4.4 H Est GFR ( Amer) 16 Est GFR (Non-Af Amer) 13 Random Glucose 120 H Calcium 6.4 L* Phosphorus 6.3 H Magnesium 1.8 Total Bilirubin 1.1 AST 37 ALT 56 Alkaline Phosphatase 71 Total Protein 4.5 L Albumin 2.4 L Globulin 2.1 Albumin/Globulin Ratio 1.2 Arterial Blood Potassium Ur Random Creatinine U Random Total Protein Urine Total Volume Microalb/Creat Ratio Hep Bs Antibody HIV 1&2 Antibody Screen Assessment & Plan - Assessment and Plan (Free Text) Assessment: 82 year old male with history of metastatic prostate cancer s/p chemo and RT therapy, HTN, renal disease and anemia who was admitted with sepsis,anemia, weakness, shortness of breath. I spoke with patient's son Kelton Puentes via phone yesterday. Goals of care discussed at length. Son requesting information about hospice care. Hospice services explained in detail, questions answered. Son also spoke with [facility] business liaison manager and is agreeable to transitioning his father to home hospice. I met with patient's ex today. Goals of care reaffirmed for hospice and comfort measures. End of life counseling provided. Time spent with family in goals of care discussion and end of life counseling, 50 minutes Plan: Goals of care End of life counseling Hospice evaluation: Pat to be discharged home today under [facility] hospice services Pain and symptom management O2 therapy/BiPAP as needed
[2017-11-25] MEDS: Metoprolol Succinate 25 mg XL Tab PO SCH (09:56)
[2017-11-25] MEDS: Cefepime 1gm in NS 100ml 1 GM/100 ML BAG IVPB SCH (09:59)
[2017-11-25 10:03] VITALS: BP 111/73
[2017-11-25 12:01] VITALS: RESP 18
--- NOTE | 2017-11-25 12:10 | CP.PCM.PN ---
Subjective - Date & Time of Evaluation Date of Evaluation: 11/25/17 Time of Evaluation: 12:08 - Subjective Subjective: Nephrology Consultation Note: Assessment: terminal Acute Kidney Injury (N17.9) likely due to obstructive uropathy, sepsis, ATN Hypertensive Chronic Kidney Disease (I12.9) Chronic Kidney Disease (N18.4) Stage 4 with ? mg proteinuria (R80.9) likely due to obs uropathy, AKIs in past Anemia, sepsis with lactic acidosis HAGMA with respi compensation vit D def metastatic prostate CA hypocalcemia, hypomagnesemia, hypernatremia, hyperphosphatemia Plan palliative care evaluation noted. pt for hospice care pt for another dose of lasix today. stop vit D and bicarb continue with palliative measures no further renal work up. Further work up/management as per primary team overall prognosis poor. condition terminal Thanks for allowing me to participate in care of your patient. will sign off. Please call if any Qs. had d/w team and family Dr Reid Marquez Office: [phone] Chief Complaint; weakness Reason for consult: Acute Kidney Injury HPI: Pt is a 82 M with hx of HTN, metastatic prostate CA, CKD stage 4 wtih baseline cr 1.5-2.0, had required HD in past presented with complaints of fatigue, weakness and near syncope episodes, found to have WALLY and anemia hence renal consulted Denies OTC/herbal meds or NSAIDs No recent iodinated contrast exposure. Noted obvious episodes of low BP 98/58. ROS: overall limited due to his current illness and being on BiPAP Physical Examination: General Appearance: on BiPAP, co-operative . ill appearing. Vitals reviewed and noted as below Lungs: Increased respiratory rate/effort. Breath sounds bilateral basal crackles Heart: Normal rate. s1s2 normal. No rub or gallop. Extremities: no edema. No varicose veins Neurological: Patient is awake Skin: Warm and dry. Normal turgor. No rash. Palpitation: Normal elasticity for age Abdomen: Abdomen is soft. Bowel sounds +. There is no abdominal tenderness, no guarding/rigidity no organomegaly Psych: deferred MSK: no joint tenderness or swelling. Digits and nails normal, no deformity : kidney or bladder not palpable Labs/imaging reviewed. Past medical history, past surgical history, family history, social history, allergy reviewed and noted as below Family hx: no hx of CKD. Rest non-contributory work up: b/l hydroureteronephrosis lactic acid 4.6 UA >3+ protein with large blood Objective - Vital Signs/Intake and Output Vital Signs (last 24 hours): Temp Pulse Resp BP Pulse Ox 98.9 F 125 H 18 111/73 96 11/25/17 06:00 11/25/17 10:59 11/25/17 12:00 11/25/17 09:56 11/25/17 06:00 Intake and Output: 11/25/17 11/25/17 06:59 18:59 Intake Total 0 Output Total 500 500 Balance -500 -500 - Medications Medications: Current Medications Albuterol/Ipratropium (Duoneb 3 Mg/0.5 Mg (3 Ml) Ud) 3 ml IH Q2H PRN PRN Reason: Shortness of Breath Last Admin: 11/24/17 16:19 Dose: 3 ml Ergocalciferol (Drisdol 50,000 Intl Units Cap) 1 cap PO Q7D [facility] Last Admin: 11/23/17 14:52 Dose: 1 cap Cefepime HCl (Maxipime 1gm) 1 gm in 100 mls @ 100 mls/hr IVPB Q24H JOLYNN PRN Reason: Protocol Stop: 12/02/17 11:01 Last Admin: 11/25/17 09:59 Dose: 100 mls/hr Metoprolol Succinate (Toprol Xl) 25 mg PO DAILY [facility] Last Admin: 11/25/17 09:56 Dose: 25 mg Morphine Sulfate (Morphine) 4 mg IVP Q6 PRN PRN Reason: Pain, moderate (4-7) Pantoprazole Sodium (Protonix Ec Tab) 40 mg PO 0600 [facility] Last Admin: 11/25/17 06:34 Dose: Not Given Sodium Bicarbonate (Sodium Bicarbonate Tab) 1,300 mg PO TID [facility] Last Admin: 11/25/17 09:56 Dose: 1,300 mg - Labs Labs: 11/25/17 06:30 11/25/17 06:30 PT 13.7 SECONDS (9.4-12.5) H 11/22/17 17:00 INR 1.20 11/22/17 17:00 APTT 29.2 Seconds (25.1-36.5) 11/22/17 17:00
--- NOTE | 2017-11-25 13:06 | PN ---
Copied To: Jassi Jain MD Attending MD: Jassi Jain MD DATE: 11/25/2017 ONCOLOGY EVALUATION SUBJECTIVE: This is an 82-year-old man with widespread metastatic cancer of his prostate. He has been seen by Dr. Llamas. He has already gone through his operations. Since 2013, he has had Taxotere, he has had the hormonal agents including and he has been getting weaker and weaker. He also has hydronephrosis, etc. I spoke with Dr. Llamas yesterday. She knows him best, and he has communicated with her decide for hospice and so we will go ahead and recommend that the patient will be put on hospice. At this point, there is no plans for chemotherapy. Jassi Jain MD
--- NOTE | 2017-11-25 14:11 | PN ---
Copied To: Good Evans MD Attending MD: Good Evans MD DATE: 11/25/2017 SUBJECTIVE: The patient is in bed, in no acute distress, was seen early this morning. He appears chronically ill, debilitated and weak. PHYSICAL EXAMINATION: VITAL SIGNS: Temperature of 98, blood pressure is 111/70, respiratory rate of 18, heart rate of 100. HEENT: Examination of HEENT is unremarkable. NECK: Supple. LUNGS: Have decreased breath sounds. HEART: Normal S1, S2. ABDOMEN: Soft, nontender. LABORATORY DATA: Laboratory examination reveals a white count of 13,000, hemoglobin of 6 and 94% neutrophils. Chemistries are noted. Creatinine is reported to be at 4.4. Urinalysis is noted. Microbiology: The blood cultures and urine cultures are negative. ASSESSMENT AND PLAN: An 82-year-old male who was seen earlier today in [facility], bed 2, who was admitted with a history of prostate cancer, metastasis to pelvis and bone metastasis; hypertension; renal disease; bilateral hydronephrosis in the past; depression; bilateral nephrostomy in the past. Presented with tachycardia, leukocytosis, positive urinalysis and sepsis with urine as the source. Urine culture is negative. At this point, we will discontinue cefepime. Case discussed with house staff, who states that the patient's family is taking him home today for hospice and supportive care. We will discontinue cefepime. No further antibiotics needed. Liudmila Heaton's consultation is noted and they are in agreement for the transition of the patient to hospice. We will discontinue the antibiotics. Overall prognosis . Good Evans MD
--- NOTE | 2017-11-25 14:39 | CP.PCM.DIS ---
Provider - Provider Date of Admission: 11/22/17 20:15 Attending physician: Ronaldo Romo MD Primary care physician: Jassi Jain Consults: Palliative - [place] [facility] - Jimmy ID - [facility] [facility] - Linda Heme/Onc - [place] Time Spent in preparation of Discharge (in minutes): 100 Hospital Course - Lab Results Lab Results: Micro Results 11/22/17 21:47 Urine Urine Culture - Final No Growth (<1,000 CFU/ML) Most Recent Lab Values WBC 13.0 10^3/ul (4.5-11.0) H 11/25/17 06:30 RBC 2.33 10^6/uL (3.5-6.1) L 11/25/17 06:30 Hgb 6.9 g/dL (14.0-18.0) L* 11/25/17 06:30 Hct 20.3 % (42.0-52.0) L* 11/25/17 06:30 MCV 87.1 fl (80.0-105.0) 11/25/17 06:30 MCH 29.6 pg (25.0-35.0) 11/25/17 06:30 MCHC 34.0 g/dl (31.0-37.0) 11/25/17 06:30 RDW 20.4 % (11.5-14.5) H 11/25/17 06:30 Plt Count 113 10^3/uL (120.0-450.0) L 11/25/17 06:30 MPV 9.7 fl (7.0-11.0) 11/25/17 06:30 Gran % 90.9 % (50.0-68.0) H 11/25/17 06:30 Lymph % (Auto) 6.7 % (22.0-35.0) L 11/25/17 06:30 [place] % (Auto) 2.3 % (1.0-6.0) 11/25/17 06:30 Eos % (Auto) 0.0 % (1.5-5.0) L 11/25/17 06:30 Baso % (Auto) 0.1 % (0.0-3.0) 11/25/17 06:30 Gran # 11.81 (1.4-6.5) H 11/25/17 06:30 Lymph # (Auto) 0.9 (1.2-3.4) L 11/25/17 06:30 [place] # (Auto) 0.3 (0.1-0.6) 11/25/17 06:30 Eos # (Auto) 0.0 (0.0-0.7) 11/25/17 06:30 Baso # (Auto) 0.01 K/mm3 (0.0-2.0) 11/25/17 06:30 Neutrophils % (Manual) 94 % (50.0-70.0) H 11/25/17 06:30 Lymphocytes % (Manual) 5 % (22.0-35.0) L 11/25/17 06:30 Monocytes % (Manual) 1 % (1.0-6.0) 11/25/17 06:30 Nucleated RBC % 1 % 11/25/17 06:30 Platelet Evaluation Low (NORMAL) 11/25/17 06:30 Poikilocytosis (manual Slight 11/25/17 06:30 Anisocytosis (manual) Slight 11/25/17 06:30 Schistocytes Slight 11/25/17 06:30 PT 13.7 SECONDS (9.4-12.5) H 11/22/17 17:00 INR 1.20 11/22/17 17:00 APTT 29.2 Seconds (25.1-36.5) 11/22/17 17:00 D-Dimer, Quantitative 4986 ng/mlDDU (0-243) H 11/22/17 17:00 pCO2 23 mm/Hg (35-45) L 11/24/17 10:30 pO2 93.0 mm/Hg (80-100) 11/24/17 10:30 HCO3 12.1 mmol/L (21-28) L 11/24/17 10:30 ABG pH 7.33 (7.35-7.45) L 11/24/17 10:30 ABG Total CO2 12.8 mmol.L (22-28) L 11/24/17 10:30 ABG O2 Saturation 99.4 % (95-98) H 11/24/17 10:30 ABG Base Excess -11.8 mmol/L (-2.0-3.0) L 11/24/17 10:30 ABG Potassium 3.6 mmol/L (3.6-5.2) 11/24/17 10:30 VBG pH 7.02 (7.32-7.43) L* 11/22/17 17:00 VBG pCO2 32.0 (40-60) L 11/22/17 17:00 VBG HCO3 8.3 mmol/l (21-28) L 11/22/17 17:00 VBG Total CO2 9.3 mmol.L (22-28) L 11/22/17 17:00 VBG O2 Sat (Calc) 59.1 % (40-65) 11/22/17 17:00 VBG Base Excess -21.7 mmol/L (0.0-2.0) L 11/22/17 17:00 VBG Potassium 4.6 mmol/L (3.6-5.2) 11/22/17 17:00 Sodium 144.0 mmol/L (132-148) 11/24/17 10:30 Chloride 119.0 mmol/L (98-107) H 11/24/17 10:30 Glucose 164 mg/dl (75-110) H 11/24/17 10:30 Lactate 1.7 mmol/L (0.7-2.1) 11/24/17 10:30 FiO2 28.0 % 11/24/17 10:30 Sodium 149 mmol/L (132-148) H 11/25/17 06:30 Potassium 4.1 mmol/L (3.6-5.0) 11/25/17 06:30 Chloride 117 mmol/L (98-107) H 11/25/17 06:30 Carbon Dioxide 14 mmol/L (21-33) L 11/25/17 06:30 Anion Gap 22 (10-20) H 11/25/17 06:30 BUN > 120 mg/dL (7-21) H* 11/25/17 06:30 Creatinine 4.4 mg/dl (0.8-1.5) H 11/25/17 06:30 Est GFR ( Amer) 16 11/25/17 06:30 Est GFR (Non-Af Amer) 13 11/25/17 06:30 POC Glucose (mg/dL) 171 mg/dL (65-110) H 11/22/17 16:57 Random Glucose 120 mg/dL (70-110) H 11/25/17 06:30 Calcium 6.4 mg/dL (8.4-10.5) L* 11/25/17 06:30 Phosphorus 6.3 mg/dL (2.5-4.5) H 11/25/17 06:30 Magnesium 1.8 mg/dL (1.7-2.2) 11/25/17 06:30 Iron 49 ug/dL (45-180) 11/23/17 13:00 TIBC 198 ug/dL (261-462) L 11/23/17 13:00 % Saturation 25 % (20-55) 11/23/17 13:00 Ferritin 317.0 ng/mL 11/23/17 13:00 Total Bilirubin 1.1 mg/dL (0.2-1.3) 11/25/17 06:30 AST 37 U/L (17-59) 11/25/17 06:30 ALT 56 U/L (7-56) 11/25/17 06:30 Alkaline Phosphatase 71 U/L (38-126) 11/25/17 06:30 Ammonia 32 umol/L (9-33) 11/23/17 06:00 Lactate Dehydrogenase 1152 U/L (333-699) H 11/22/17 17:00 Total Creatine Kinase 38 U/L (35-230) 11/22/17 17:00 Troponin I 0.04 ng/mL 11/22/17 17:00 NT-Pro-B Natriuret Pep 1930 pg/mL (0-450) H 11/22/17 17:00 Total Protein 4.5 g/dL (5.8-8.3) L 11/25/17 06:30 Albumin 2.4 g/dL (3.0-4.8) L 11/25/17 06:30 Globulin 2.1 gm/dL 11/25/17 06:30 Albumin/Globulin Ratio 1.2 (1.1-1.8) 11/25/17 06:30 Lipase 211 U/L (23-300) 11/22/17 17:00 Prostate Specific Ag 309.0 ng/mL (0.00-2.5) H 11/23/17 12:00 Vitamin B12 311 pg/mL (239-931) 11/23/17 13:00 25-OH Vitamin D Total < 12.8 NG/ML (30.0-100.0) L 11/23/17 05:30 Folate 6.4 ng/mL 11/23/17 13:00 Procalcitonin 1.28 NG/ML (0.19-0.49) H 11/23/17 05:30 Testosterone Level 11.5 ng/mL 11/23/17 12:00 PTH Intact Whole Molec 524 pg/mL (14-64) H 11/24/17 06:30 Arterial Blood Potassium 3.6 mmol/L (3.6-5.2) 11/24/17 10:30 Venous Blood Potassium 4.6 mmol/L (3.6-5.2) 11/22/17 17:00 Urine Color [place] (YELLOW) 11/22/17 21:47 Urine Appearance Slight-cloudy (CLEAR) 11/22/17 21:47 Urine pH 6.0 (4.7-8.0) 11/22/17 21:47 Ur Specific [place] 1.020 (1.005-1.035) 11/22/17 21:47 Urine Protein >=300 mg/dL (<30 mg/dL) H 11/22/17 21:47 Urine Glucose (UA) Negative mg/dL (NEGATIVE) 11/22/17 21:47 Urine Ketones Trace mg/dL (NEGATIVE) H 11/22/17 21:47 Urine Blood Large (NEGATIVE) H 11/22/17 21:47 Urine Nitrate Negative (NEGATIVE) 11/22/17 21:47 Urine Bilirubin Negative (NEGATIVE) 11/22/17 21:47 Urine Urobilinogen 0.2 E.U./dL (<1 E.U./dL) 11/22/17 21:47 Ur Leukocyte Esterase Moderate [place]/uL (NEGATIVE) H 11/22/17 21:47 Urine RBC Tntc /hpf (0-2) 11/22/17 21:47 Urine WBC 20 - 25 /hpf (0-6) 11/22/17 21:47 Ur Epithelial Cells 3 - 4 /hpf (0-5) 11/22/17 21:47 Amorphous Sediment Small 11/22/17 21:47 Urine Bacteria Occ (NEG) 11/22/17 21:47 Ur Random Creatinine 42 mg/dL (20-370) 11/23/17 22:00 U Random Total Protein 3015 mg/g creat (22-128) H 11/23/17 22:00 Urine Total Volume 22.0 mg/dL 11/23/17 22:00 Microalb/Creat Ratio 527 (<30) H 11/23/17 22:00 Hep Bs Antigen Negative (NEGATIVE) 11/23/17 13:00 Hep Bs Antibody Negative (NEGATIVE) 11/24/17 06:30 Hep B Core IgM Ab Negative (NEGATIVE) 11/23/17 13:00 Hepatitis C Antibody Negative (NEGATIVE) 11/23/17 13:00 HIV 1&2 Antibody Screen Cancelled 11/23/17 13:00 Blood Type O POSITIVE 11/23/17 08:00 Antibody Screen Negative 11/23/17 08:00 Crossmatch See Detail 11/23/17 08:00 BBK History Checked Patient has bt 11/23/17 08:00 - Hospital Course Hospital Course: Upon Admission Mr. 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 This patient was brought to [facility]'s Emergency Room and admitted to the hospital on 11/22/2017 for syncopal episodes, weakness and episodes of shortness of breath. The patient complained of some abdominal discomfort and recent weight loss. Patient denied fevers, chest pain and shortness of breath upon admission. Head CT showed no acute intracranial findings. CT of the abdomen pelvis reaffirmed extensive peritoneal and osseous metastases. V/Q scan was negative for a PE. Hospital Stay 11/23/2017 Patients labs showed decreased hemoglobin for which the patient was transfused 1 unit of packed red blood cells. Infectious Disease was consulted and the patient was found to have leukocytosis and positive urinalysis with renal disease. This patient was started on Cefepime 1g every 24 hours, and given a single dose of Vancomyocin. Overall prognosis was poor secondary to the progression of his disease process and was advised to seek out hospice. 11/24/17 Patient was evaluated and was found to have no acute events overnight. Patient s Pulse Ox was found to be 99% and a stat ABG was ordered because he appeared to have labored breathing. The patients family was at bedside and plans for goals of care were discussed with Palliative care. Patient and his family both agreed to home hospice which was then set up by social work. Oncology was consulted and patient was confirmed to have metastatic prostate carcinoma s/p radical prostectomy several years prior. Patient was found to have mets to the lymph nodes and pelvis. For the past two months the patient was found to have been getting weaker, with increasing PSA, anemia, increasing creatinine, and hydronephrosis secondary to pelvic mass. The family was notified of the terminal stage of cancer and agreed to hospice. Infectious disease recommended discontinuation of Cefepime with supportive care initiated for ultimate hospice. 11/25/17 Hemotology was consulted and Dr. Jassi Jain agreed with oncology note and patient was recommended for hospice by hematology. Case was finally discussed with staff who confirmed that the patients family will take him home today for hospice and supportive care. All antibiotics and drips were discontinued. - Date & Time of H&P Date of H&P: 11/22/17 Time of H&P: 22:55 Discharge Exam - Head Exam Head Exam: ATRAUMATIC, NORMAL INSPECTION, NORMOCEPHALIC - Eye Exam Eye Exam: EOMI, PERRL - ENT Exam ENT Exam: Mucous Membranes Dry - Respiratory Exam Respiratory Exam: Accessory Muscle Use. absent: Wheezes, Respiratory Distress - Cardiovascular Exam Cardiovascular Exam: REGULAR RHYTHM, +S1, +S2. absent: Systolic Murmur - GI/Abdominal Exam GI & Abdominal Exam: Distended, Normal Bowel Sounds, Soft. absent: Tenderness - Skin Skin Exam: Dry, Intact, Normal Color, Warm Discharge Plan - Follow Up Plan Condition: STABLE Disposition: HOSPICE - HOME Additional Instructions: [facility] is making arrangements for patient to be picked up at 6pm via stretcher and taken to home to proceed with hospice. Referrals: Jassi Jain MD [Primary Care Provider] -
[2017-11-25 18:06] VITALS: PULSE 120
--- NOTE | 2017-11-25 19:56 | CON ---
Copied To: Joanna Mckeon MD Attending MD: Joanna Mckeon MD DATE: 11/24/2017 UROLOGY CONSULTATION UROLOGY CONSULTATION REQUESTED BY: Dr. Romo. UROLOGY CONSULTATION FILLED BY: Joanna Mckeon MD REASON FOR CONSULTATION: Prostate carcinoma. HISTORY OF PRESENT ILLNESS: The patient is an 82-year-old male with prostate carcinoma. The patient has history of metastatic prostate carcinoma, stage IV. The patient has history of lung mets. The patient is reported to have abdominal mets as well. The patient has history of chronic kidney disease. The patient has history of bilateral hydronephrosis. He has been treated with cystoscopy and stent change. Stents were exchanged approximately 4 months ago. The patient has had no recent hematuria. The patient was admitted with syncope. The patient was found to have renal failure as well. The patient previously received chemotherapy. The patient previously received hormonal therapy, androgen deprivation therapy. The patient is currently being visited by his . His has provided the details of history. Review of the chart is performed as well. The patient is on a do not resuscitate status. The patient is scheduled for transfer to hospice care tomorrow. Upon questioning, he reports that he is comfortable. However, his states he has been having generalized pain. The patient lives with his . PHYSICAL EXAMINATION: GENERAL: The patient is a well-developed, elderly male. The patient is lethargic. ABDOMEN: Soft, mildly distended. HEENT: There is some facial swelling as well. BACK: No CVA tenderness. GENITALIA: Without inflammation. The urine is clear. No edema of the scrotum or scrotal contents. Testes are small. EXTREMITIES: Lower extremities demonstrate no calf or thigh tenderness. No edema of the lower extremities. LABORATORY DATA: BUN 109, creatinine 3.9. IMPRESSION: Metastatic prostate carcinoma, bilateral hypophrenosis, ureteral stents in place, renal failure. RECOMMENDATIONS AND PLAN: Review further details regarding the patient's previous history. Consult with the patient's oncologist and previous urologist regarding current status and future plans, possible need for cystoscopy and stent change, possible further oncologic therapy to follow, otherwise supportive care and palliative care in home or hospice setting. Obtain serum PSA as well. Obtain serum testosterone. Physical therapy to follow according to the patient's clinical course and results of the above. Thank you for recommending the patient for urology consultation. [place] MD Linda cc: Dr. Romo. Deysi Llamas MD [facility] # [id number]
== END 2017-11-25 19:36 | disposition hospice, home (50) | DRG 871 ==
LOC: ED 16:47 → ERH 20:15 → 2RSO 22:20
PROVIDERS: ADMIT Internal Medicine; ATTEND Internal Medicine
PROC: 30233N1 Transfusion of Nonautologous Red Blood Cells into Peripheral Vein, Percutaneous Approach (ICD-10-PCS; 2017-11-23)
PROC: 5A09357 Assistance with Respiratory Ventilation, Less than 24 Consecutive Hours, Continuous Positive Airway Pressure (ICD-10-PCS; principal; 2017-11-24)
DX: A41.9 Sepsis, unspecified organism (principal); N17.0 Acute kidney failure with tubular necrosis; N39.0 Urinary tract infection, site not specified; C79.51 Secondary malignant neoplasm of bone; C77.9 Secondary and unspecified malignant neoplasm of lymph node, unspecified; C78.6 Secondary malignant neoplasm of retroperitoneum and peritoneum; N18.4 Chronic kidney disease, stage 4 (severe); E87.0 Hyperosmolality and hypernatremia; E87.2 Acidosis; N13.30 Unspecified hydronephrosis; I12.9 Hypertensive chronic kidney disease with stage 1 through stage 4 chronic kidney disease, or unspecified chronic kidney disease; E86.0 Dehydration; D63.0 Anemia in neoplastic disease; E83.39 Other disorders of phosphorus metabolism; E55.9 Vitamin D deficiency, unspecified; E83.42 Hypomagnesemia; E83.51 Hypocalcemia; F32.9 Major depressive disorder, single episode, unspecified; R55 Syncope and collapse; Z66 Do not resuscitate; Z51.5 Encounter for palliative care; Z85.46 Personal history of malignant neoplasm of prostate; Z87.440 Personal history of urinary (tract) infections; Z90.79 Acquired absence of other genital organ(s); Z92.21 Personal history of antineoplastic chemotherapy; Z92.3 Personal history of irradiation; Z82.49 Family history of ischemic heart disease and other diseases of the circulatory system